=== PATIENT | female | born 1995 | race Caucasian/White ===

== ENCOUNTER 2020-02-16 02:10 | Emergency (ER) | payer MEDICAID, SELFPAY ==
[2020-02-16 02:20] VITALS: BP 128/83; PULSE 86; RESP 18; TEMP 36.1; O2SAT 99; BMI 24.5
--- NOTE | 2020-02-16 02:37 | USR_ITS ---
PROCEDURE INFORMATION: Exam: US , Limited Exam date and time: 02/16/2020 3:16 AM Age: 24 years old Clinical indication: Lmp or gestational age (in weeks): PT should be 11 week by dates; Other: Bleeding cramping; ; Patient HX: ? Blighted ovum vs molor vs etopic; Additional info: Vag bleeding, cramp TECHNIQUE: Imaging protocol: Real-time ultrasound of the maternal uterus with image documentation. Exam focused on the clinical indication. COMPARISON: No relevant prior studies available. FINDINGS: Gestation: Intrauterine gestation sac measuring 9 mm. No extra uterine gestation identified. Heart rate: No visualized pole or cardiac activity. BIOMETRY: Estimated gestational age: Gestational age 5 weeks and 6 days. Estimated due date: Estimated due date 10/12/2020. US/US OB >=14 wk fetus w transvag IMPRESSION: Intrauterine gestational sac without identified yolk sac, pole, or heart rate. Possibly too early versus failure, follow-up recommended.
--- NOTE | 2020-02-16 02:52 | ED_ITS ---
HPI - Female Genitourinary General: Chief complaint: Urogenital-Female Stated complaint: vaginal bleeding Time Seen by Provider: 02/16/20 02:32 History of Present Illness: HPI Narrative: 24-year-old G1, P0 female. She presents with bleeding and cramping. She is passing some blood clots with a large amount of bleeding. She says the cramping is gotten worse tonight. She believes she is around 10 weeks along, and she was ultrasounded a little less than 2 weeks ago in her OBs clinic. Supposedly they were quite worried about the possibility of a molar . MD elicited complaint: vaginal bleeding Pertinent past history: overactive bladder Onset (ago): day(s) (1) Location of symptoms: vaginal Consistency: progressively worsening Associated symptoms: Reports abdominal pain and nausea; Deny headache(s) Date of Last Menstrual Period: 12/02/19 Review of Systems Const: Denies: fever or chills Eyes: Denies: change in vision ENMT: Reports: swelling of lips/tongue; Denies: painful swallowing or facial/sinus pain Card: Denies: chest pain, palpitations, irregular heart rhythm, edema, swelling of feet/ankles, shortness of breath on exertion or shortness of breath when lying down Resp: Denies: shortness of breath, productive cough, non-productive cough or wheezing GI: Reports: abdominal pain and nausea; Denies: vomiting : Reports: urinary frequency; Denies: painful urination, urinary urgency or blood in urine Musc: Reports: back pain; Denies: neck pain, redness or joint warmth Skin/Breast: Denies: rash, itching or redness Neuro: Denies: headache, dizziness, vertigo, confusion or seizure-like activity Psych: Reports: anxiety PFSH ED PFSH: Social History Smoking and tobacco status: current every day smoker Female Reproductive History: Date of last menstrual period: 12/02/19 Physical Exam Const: GENERAL APPEARANCE: well developed ORIENTATION/CONSCIOUSNESS: Yes oriented to person, Yes oriented to place and Yes oriented to time HENMT: COMMON NORMALS: normocephalic, external ears normal and external nose normal HEAD & SCALP: normocephalic FACE & SINUS: normal facial exam NOSE: external nose normal and no nasal discharge EXTERNAL EAR: Yes external ears normal MOUTH: tongue normal Eye: COMMON NORMALS: PERRL, EOMs intact bilaterally and conjunctivae normal EYELID: eyelids normal CONJUNCTIVA: Yes conjunctivae normal PUPIL: Yes PERRL Neck/C-Spine: GENERAL: No tracheal deviation Chest: COMMONS NORMALS: inspection of chest normal CHEST: No tenderness Resp: COMMON NORMALS: clear to auscultation bilaterally EFFORT & INSPECTION: No tachypneic, No respiratory distress, No retractions, No uses accessory muscles and No tracheal deviation AUSCULTATION: clear to auscultation bilaterally, no rhonchi, no wheezes and lung sounds not diminished Cardio: COMMON NORMALS: regular rate and regular rhythm RATE: regular rate RHYTHM: regular rhythm HEART SOUNDS: no murmurs PERIPHERAL PULSES: radia l pulses present GI: INSPECTION: No abdominal distension AUSCULTATION: No hyperactive bowel sounds and No hypoactive bowel sounds PALPATION: Yes tender Details: LLQ, No guarding and No rigid PERCUSSION: no dullness to percussion and no tympanic to percussion Neuro: SENSORIUM/ORIENTATION: Yes oriented to person, Yes oriented to place and Yes oriented to time Psych: COMMON NORMALS: mental status grossly normal Skin: COMMON NORMALS: no rashes or lesions noted GENERAL SKIN EXAM: no rashes or lesions noted Course Vital Signs: Vital signs: Vital Signs Temperature 97.0 F L 02/16/20 02:20 Pulse Rate 75 02/16/20 04:23 Respiratory Rate 17 02/16/20 04:23 Blood Pressure 86/65 02/16/20 04:23 Pulse Oximetry 99 02/16/20 04:23 MDM - Female [facility] Narrative: Medical decision making narrative: 24-year-old female with vaginal bleeding, and cramping. She believes she is about 10 weeks . Her hemoglobin is 13.4. Her platelet count is normal. Her other serum work-up is benign. She is not having urinary tract infection. Her cervix is closed by ultrasound by ultrasound, her gestational sac measures 5 weeks and 6 days. This is consistent with her quant of 8200. But, there is no pole present or cardiac activity. She will need continued follow-up. Lab Data: Labs: Lab Results 02/16/20 02/16/20 02/16/20 Range/Units 02:50 02:55 02:55 WBC 11.4 H (4.0-10.0) 10^3/ uL RBC 4.42 (4.1-5.3) 10^6/u L Hgb 13.4 (11.5-15.3) g/dL Hct 40.3 (37.0-47.0) % MCV 91.2 (81-99) fL MCH 30.3 (28.0-34.0) pg MCHC 33.3 (30.0-36.0) g/dL RDW 12.3 (12.1-15.1) % Plt Count 180 (130-400) 10^3/c mm MPV 12.2 H (7.4-10.4) fL Neut % (Auto) 55.1 % Lymph % (Auto) 35.7 % [place] % (Auto) 7.7 % Eos % (Auto) 0.9 % Baso % (Auto) 0.4 % Neut # (Auto) 6.3 (1.8-7.7) 10^3/u L Lymph # (Auto) 4.1 (0.8-4.8) 10^3/u L [place] # (Auto) 0.9 (0.2-0.9) 10^3/u L Eos # (Auto) 0.1 (0.0-0.8) 10^3/u L Baso # (Auto) 0.1 (0.0-0.1) 10^3/u L Nucleated RBC % (a uto) 0 % Nucleated RBCs # 0.0 /100WBC Sodium 137 (136-145) mmol/L Potassium 3.5 (3.5-5.1) mmol/L Chloride 103 (98-107) mmol/L Carbon Dioxide 22 (22-29) mmol/L Anion Gap 15.5 (5-19) BUN 7 (6-20) mg/dL Creatinine 0.6 (0.5-0.9) mg/dL GFR Calculation 121.8 (90-130) mL/min Glucose 100 (65-115) mg/dL Calculated Osmolal ity 280 L (285-295) mOsm/k g Calcium 9.8 (8.5-10.5) mg/dL Total Bilirubin 0.2 (0.15-1.2) mg/dL AST 21 (0-32) U/L ALT 23 (0-33) U/L Alkaline Phosphata se 81 (35-105) IU/L Total Protein 7.4 (6.6-8.7) g/dL Albumin 4.2 (3.5-5.2) g/dL Globulin 3.2 (1.3-4.6) g/dL Ser , [place] i-Qnt 8258.00 mIU/mL Urine Color Yellow (Yellow) Urine Appearance Hazy A (CLEAR) Urine pH 7 (5-7) Ur Specific Gravit y 1.010 (1.005-1.030) Urine Protein Neg (Negative) Urine Glucose (UA) Norm (Normal) Urine Ketones Negative (Negative) Urine Blood 2+ H (Negative) Urine Nitrate Negative (Negative) Urine Bilirubin Neg (NEGATIVE) Urine Urobilinogen Norm (Negative) mg/dL Ur Leukocyte Wanda ase Negative (Negative) Urine RBC 0-4 H (0-2) /hpf Urine WBC None (0-5) /hpf Ur Squamous Epith Cells None (0-5) Amorphous Sediment 1+ Urine Bacteria Trace (NONE) Blood Type Rho(D) Type 02/16/20 Range/Units 02:55 WBC (4.0-10.0) 10^3/ uL RBC (4.1-5.3) 10^6/u L Hgb (11.5-15.3) g/dL Hct (37.0-47.0) % MCV (81-99) fL MCH (28.0-34.0) pg MCHC (30.0-36.0) g/dL RDW (12.1-15.1) % Plt Count (130-400) 10^3/c mm MPV (7.4-10.4) fL Neut % (Auto) % Lymph % (Auto) % [place] % (Auto) % Eos % (Auto) % Baso % (Auto) % Neut # (Auto) (1.8-7.7) 10^3/u L Lymph # (Auto) (0.8-4.8) 10^3/u L [place] # (Auto) (0.2-0.9) 10^3/u L Eos # (Auto) (0.0-0.8) 10^3/u L Baso # (Auto) (0.0-0.1) 10^3/u L Nucleated RBC % (a uto) % Nucleated RBCs # /100WBC Sodium (136-145) mmol/L Potassium (3.5-5.1) mmol/L Chloride (98-107) mmol/L Carbon Dioxide (22-29) mmol/L Anion Gap (5-19) BUN (6-20) mg/dL Creatinine (0.5-0.9) mg/dL GFR Calculation (90-130) mL/min Glucose (65-115) mg/dL Calculated Osmolal ity (285-295) mOsm/k g Calcium (8.5-10.5) mg/dL Total Bilirubin (0.15-1.2) mg/dL AST (0-32) U/L ALT (0-33) U/L Alkaline Phosphata se (35-105) IU/L Total Protein (6.6-8.7) g/dL Albumin (3.5-5.2) g/dL Globulin (1.3-4.6) g/dL Ser , [place] i-Qnt mIU/mL Urine Color (Yellow) Urine Appearance (CLEAR) Urine pH (5-7) Ur Specific Gravit y (1.005-1.030) Urine Protein (Negative) Urine Glucose (UA) (Normal) Urine Ketones (Negative) Urine Blood (Negative) Urine Nitrate (Negative) Urine Bilirubin (NEGATIVE) Urine Urobilinogen (Negative) mg/dL Ur Leukocyte Wanda ase (Negative) Urine RBC (0-2) /hpf Urine WBC (0-5) /hpf Ur Squamous Epith Cells (0-5) Amorphous Sediment Urine Bacteria (NONE) Blood Type A Negative Rho(D) Type Negaive Discharge Plan Discharge Patient Disposition: Home, Self-Care Clinical Impression: Threatened Condition: Stable Discharge Orders: Discharge Order (Routine); Ordered 02/16/20 Ordered By: Eric Donovan Discharge Diet: Advance as tolerated Discharge Activity: Limit activity as instructed Patient Instructions: Threatened Miscarriage (ED) Activity Restrictions/Additional Instructions: Return for brisk vaginal bleeding, soaking a pad an hour for more than 3 to 4 hours. Return also for fever greater than 100, vomiting liquids or medications, worsening pain, other concerning symptoms. You should follow-up with your doctor in the next few days, to have a repeat quantitative test. Coding Level of Care Code ED Financial Legal Assistant for Chg Fwd Exam Comprehensive
[2020-02-16] MEDS: sodium chloride 0.9% 1,000 ML 999 ML IV (03:07)
--- NOTE | 2020-02-16 03:12 | PC.NURSE ---
Ultrasound Ultrasound performed at bedside [id number]
[2020-02-16 03:20] VITALS: BP 127/49; PULSE 77; RESP 17; O2SAT 100
--- NOTE | 2020-02-16 03:21 | PC.NURSE ---
Transvaginal ultrasound Nurse at bedside during transvaginal ultrasound. Transvaginal ultrasound performed at 0322
[2020-02-16 03:32] LABS: Alanine Aminotransferase 23 U/L (0-33); Albumin Level 4.2 g/dL (3.5-5.2); Alkaline Phosphatase 81 IU/L (35-105); Anion Gap 15.5 (5-19); Aspartate Amino Transferase 21 U/L (0-32); Blood Urea Nitrogen 7 mg/dL (6-20); Calcium 9.8 mg/dL (8.5-10.5); Carbon Dioxide 22 mmol/L (22-29); Chloride 103 mmol/L (98-107); Globulin 3.2 g/dL (1.3-4.6); Glomerular Filtration Rate 121.8 mL/min (90-130); Glucose 100 mg/dL (65-115); Osmolality Calculated 280 mOsm/kg (285-295); Potassium 3.5 mmol/L (3.5-5.1); Sodium 137 mmol/L (136-145); Total Bilirubin 0.2 mg/dL (0.15-1.2); Total Protein 7.4 g/dL (6.6-8.7)
[2020-02-16 03:42] LABS: Glucose Urine UA Norm (Normal); Protein Urine Neg (Negative); Urine Appearance Hazy (CLEAR); Urine Color Yellow (Yellow); pH Urine 7 (5-7)
[2020-02-16 03:43] LABS: Add Urine Microscopic? YES; Bilirubin Urine Neg (NEGATIVE); Blood Urine 2+ (Negative); Ketones Urine Negative (Negative); Leukocyte Esterase Urine Negative (Negative); Nitrate Urine Negative (Negative); Urobilinogen Urine Norm (Negative)
[2020-02-16 03:44] LABS: Add Urine Culture? No; Amorphous Sediment Urine 1+; Bacteria Urine TRACE; RBC Urine 0-4 /hpf (0-2)
[2020-02-16 03:48] LABS: Basophils # 0.1 10^3/uL (0.0-0.1); Basophils % 0.4 %; Eosinophils # 0.1 10^3/uL (0.0-0.8); Eosinophils % 0.9 %; Hematocrit 40.3 % (37.0-47.0); Hemoglobin 13.4 g/dL (11.5-15.3); Lymphocytes # 4.1 10^3/uL (0.8-4.8); Lymphocytes % 35.7 %; Mean Corpuscular HGB Conc 33.3 g/dL (30.0-36.0); Mean Corpuscular Hemoglobin 30.3 pg (28.0-34.0); Mean Corpuscular Volume 91.2 fL (81-99); Mean Platelet Volume 12.2 fL (7.4-10.4); Monocytes # 0.9 10^3/uL (0.2-0.9); Monocytes % 7.7 %; Neutrophils # 6.3 10^3/uL (1.8-7.7); Neutrophils % 55.1 %; Nucleated Red Blood Cells % 0 %; Platelet Count 180 10^3/cmm (130-400); Red Blood Count 4.42 10^6/uL (4.1-5.3); Red Cell Distribution Width 12.3 % (12.1-15.1); White Blood Count 11.4 10^3/uL (4.0-10.0)
[2020-02-16 04:23] VITALS: BP 86/65; PULSE 75; RESP 17; O2SAT 99
[2020-02-16 05:57] VITALS: BP 109/65; PULSE 78; RESP 17; O2SAT 100
[2020-02-16 06:07] VITALS: BP 109/65; PULSE 78; RESP 17; O2SAT 100
== END 2020-02-16 06:07 | disposition home or self-care (01) ==
PROVIDERS: Emergency Provider Emergency Medicine
DX: O20.0 Threatened abortion (principal); Z3A.10 10 weeks gestation of pregnancy; O99.331 Smoking (tobacco) complicating pregnancy, first trimester; F17.210 Nicotine dependence, cigarettes, uncomplicated
CPT/HCPCS: 12345; 36430; 76805; 76817; 80053; 81001; 84702; 85025; 86850; 86900; 90384; 96360; 99283; J7030

== ENCOUNTER → 2020-08-22 12:44 | Outpatient (BNVA) | payer OTHER, SELFPAY | DX: R35.0 Frequency of micturition (principal); R19.8 Other specified symptoms and signs involving the digestive system and abdomen; R11.0 Nausea; Z33.1 Pregnant state, incidental | CPT/HCPCS: 81000; 87086 ==

== ENCOUNTER → 2020-08-31 10:17 | Outpatient (BNVA) | payer OTHER, SELFPAY | PROVIDERS: Visit Provider Emergency Medicine | DX: Z20.828 Contact with and (suspected) exposure to other viral communicable diseases (principal); R68.89 Other general symptoms and signs | CPT/HCPCS: 87400; 87635 ==

== ENCOUNTER → 2021-02-05 09:45 | Outpatient (BNVA) | payer OTHER, SELFPAY | PROVIDERS: Visit Provider Nurse Practitioner Family | DX: Z20.822 Contact with and (suspected) exposure to COVID-19 (principal) | CPT/HCPCS: 87426 ==

== ENCOUNTER → 2021-04-09 16:36 | Outpatient (BNVA) | payer OTHER, SELFPAY | PROVIDERS: Visit Provider Nurse Practitioner | DX: S99.921A Unspecified injury of right foot, initial encounter (principal); X58.XXXA Exposure to other specified factors, initial encounter | CPT/HCPCS: 73630 ==

== ENCOUNTER 2021-05-18 11:37 | Outpatient (CLI) | payer OTHER, SELFPAY ==
[2021-05-18 13:42] LABS: HCG Quantitative 26.93 mIU/mL
== END 2021-05-18 11:38 | disposition home or self-care (01) ==
PROVIDERS: Visit Provider Obstetrics & Gynecology
DX: N91.2 Amenorrhea, unspecified (principal)
CPT/HCPCS: 84702

== ENCOUNTER 2021-05-20 11:14 | Outpatient (CLI) | payer OTHER, SELFPAY ==
[2021-05-20 12:06] LABS: HCG Quantitative 40.34 mIU/mL
== END 2021-05-20 11:15 | disposition home or self-care (01) ==
PROVIDERS: PCP Registered Nurse; Visit Provider Obstetrics & Gynecology
DX: N91.2 Amenorrhea, unspecified (principal)
CPT/HCPCS: 36415; 84702

== ENCOUNTER 2021-05-22 12:39 | Emergency (ER) | payer OTHER, SELFPAY ==
[2021-05-22 13:01] VITALS: BP 136/81; PULSE 78; RESP 15; TEMP 37.1; O2SAT 98; BMI 25.6
--- NOTE | 2021-05-22 14:09 | ED_ITS ---
HPI - General: Chief complaint: Vaginal Bleeding Stated complaint: abd pain; spotting; est 4 weeks gestation Time Seen by Provider: 05/22/21 14:05 History of Present Illness: HPI Narrative: Patient has some light spotting. Almost slight starr color she said been going on for today. Has some cramping also did contact her OB they said come in and get some lab work done evaluate. MD Complaint: other (Abdominal cramping with slight rust colored Spotting) Onset (ago): day(s) Pain Consistency: intermittent Severity scale (1-10): 1 Quality: Cramping Vaginal discharge: clear Vaginal bleeding: light Date of Last Menstrual Period: 04/18/21 Patient : Yes OB History - Current : no complications OB History - Previous Pregnancies: miscarriage care: followed by OB Associated symptoms: Reports no associated symptoms and abdominal pain (Cramping); Deny headache(s), nausea or vomiting Review of Systems Const: Denies: fever(s), chills or body aches Eyes: Denies: change in vision or blurry vision ENMT: Denies: throat pain or nasal congestion Card: Denies: chest pain or dyspnea on exertion Resp: Denies: dyspnea, productive cough or non-productive cough GI: Reports: abdominal pain (Cramping); Denies: nausea or vomiting : Reports: other (Rust colored light spotting) Musc: Denies: extremity pain Skin/Breast: Denies: rash Neuro: Denies: headache(s) Psych: Denies: anxiety or depression Raman/Lymph: Denies: easy bruising PFSH ED PFSH: Family History Other Hypertension Denies family history of Diabetes Dementia Social History Smoking and tobacco status: current every day smoker Female Reproductive History: Date of last menstrual period: 04/18/21 Physical Exam Const: COMMON NORMALS: no acute distress GI: COMMON NORMALS: Normal to inspection, nondistended, normoactive bowel sounds present Psych: COMMON NORMALS: mental status grossly normal Course Vital Signs: Vital signs: Vital Signs Temperature 98.8 F 05/22/21 13:01 Pulse Rate 78 05/22/21 13:01 Respiratory Rate 15 05/22/21 13:01 Blood Pressure 136/81 05/22/21 13:01 Pulse Oximetry 98 05/22/21 13:01 MDM - OB/Uterine Contractions MDM Narrative: Medical decision making narrative: Abdominal cramping mild, mild vaginal bleeding. UA shows 2+ hematuria. Patient encouraged follow-up with OB provider or return here if symptoms worsen. hCG has doubled since last 1 last week. Patient still not 4-week range. Lab Data: Labs: Lab Results 05/22/21 05/22/21 05/22/21 Range/Units 14:25 14:25 14:25 WBC 11.4 H (4.0-10.0) 10^3/ uL RBC 4.70 (4.1-5.3) 10^6/u L Hgb 14.3 (11.5-15.3) g/dL Hct 42.8 (37.0-47.0) % MCV 91.1 (81-99) fl MCH 30.4 (28.0-34.0) pg MCHC 33.4 (30.0-36.0) g/dL RDW 12.2 (12.1-15.1) % Plt Count 188 (130-400) 10^3/c mm MPV 12.0 H (7.4-10.4) fL Neut % (Auto) 58.8 % Lymph % (Auto) 34.0 % [place] % (Auto) 6.0 % Eos % (Auto) 0.6 % Baso % (Auto) 0.3 % Neut # (Auto) 6.71 (1.8-7.7) 10^3/u L Lymph # (Auto) 3.9 (0.8-4.8) 10^3/u L [place] # (Auto) 0.7 (0.2-0.9) 10^3/u L Eos # (Auto) 0.1 (0.0-0.8) 10^3/u L Baso # (Auto) 0.0 (0.0-0.1) 10^3/u L Nucleated RBC % (a uto) 0 % Nucleated RBCs # 0.0 /100WBC Sodium 136 (136-145) mmol/L Potassium 3.7 (3.5-5.1) mmol/L Chloride 101 (98-107) mmol/L Carbon Dioxide 22 (22-29) mmol/L Anion Gap 16.7 (5-19) BUN 9 (6-20) mg/dL Creatinine 0.5 (0.5-0.9) mg/dL GFR Calculation 148.0 H (90-130) mL/min Glucose 77 (65-115) mg/dL Calculated Osmolal ity 279 L (285-295) mOsm/k g Calcium 9.3 (8.5-10.5) mg/dL Ser , [place] i-Qnt 88.65 mIU/mL Urine Color Yellow (Yellow) Urine Appearance Clear (CLEAR) Urine pH 7 (5-7) Ur Specific Gravit y 1.005 (1.005-1.030) Urine Protein Neg (Negative) Urine Glucose (UA) Norm (Normal) Urine Ketones Negative (Negative) Urine Blood 2+ H (Negative) Urine Nitrate Negative (Negative) Urine Bilirubin Neg (Negative) Urine Urobilinogen Norm (Negative) mg/dL Ur Leukocyte Wanda ase Negative (Negative) Urine RBC 0-4 H (0-2) /hpf Urine WBC None (0-5) /hpf Ur Squamous Epith Cells 0-4 H (0-5) /hpf Ur Transition Epit h Cell None /hpf Ur Renal Epithelia l Cell N /hpf Calcium Oxalate Cr ystal None /hpf Amorphous Sediment Trace /hpf Urine Bacteria None (NONE) /hpf Urine Mucus N /hpf Discharge Plan Discharge Patient Disposition: Home Clinical Impression: Threatened Condition: Stable Prescriptions: No Action prenat.vits,zahira,[id number] Tablet 1 tab PO DAILY RF: 0 Tylenol 325 mg Tablet 325 - 650 mg PO QID PRN (Reason: PAIN/HEADACHE) RF: 0 Discharge Orders: Discharge ED (Routine); Ordered 05/22/21 Ordered By: Alexey Quiñones Referrals: Abby Zapata [Primary Care Provider] - Discharge Diet: Usual diet Discharge Activity: Increase activity as tolerated Activity Restrictions/Additional Instructions: Drink plenty of fluids. Follow-up with your provider of choice. Rest this weekend. Can return if worsening of symptoms. Coding Level of Care Code ED Supervisor [employer] for Chg Fwd Exam Expanded Problem Focused
[2021-05-22 14:35] VITALS: BP 108/76; PULSE 70; RESP 18; O2SAT 97
[2021-05-22 14:39] LABS: Basophils % 0.3 %; Eosinophils # 0.1 10^3/uL (0.0-0.8); Eosinophils % 0.6 %; Hematocrit 42.8 % (37.0-47.0); Hemoglobin 14.3 g/dL (11.5-15.3); Lymphocytes # 3.9 10^3/uL (0.8-4.8); Mean Corpuscular HGB Conc 33.4 g/dL (30.0-36.0); Mean Corpuscular Hemoglobin 30.4 pg (28.0-34.0); Mean Corpuscular Volume 91.1 fl (81-99); Monocytes # 0.7 10^3/uL (0.2-0.9); Neutrophils # 6.71 10^3/uL (1.8-7.7); Neutrophils % 58.8 %; Nucleated Red Blood Cells % 0 %; Platelet Count 188 10^3/cmm (130-400); Red Cell Distribution Width 12.2 % (12.1-15.1); White Blood Count 11.4 10^3/uL (4.0-10.0)
[2021-05-22 15:00] VITALS: BP 112/67; PULSE 68; RESP 16; O2SAT 96
[2021-05-22 15:20] LABS: Urine Appearance Clear (CLEAR); Urine Color Yellow (Yellow)
[2021-05-22 15:21] LABS: Add Urine Microscopic? YES; Bilirubin Urine Neg (Negative); Blood Urine 2+ (Negative); Glucose Urine UA Norm (Normal); Ketones Urine Negative (Negative); Leukocyte Esterase Urine Negative (Negative); Nitrate Urine Negative (Negative); Protein Urine Neg (Negative); Specific Gravity, Urine 1.005 (1.005-1.030); Urobilinogen Urine Norm (Negative); pH Urine 7 (5-7)
[2021-05-22 15:23] LABS: HCG Quantitative 88.65 mIU/mL; Mucus Urine N /hpf; RBC Urine 0-4 /hpf (0-2); Renal Epithelial Cells Urine N /hpf; Squamous Epithelial Cell Urine 0-4 /hpf (0-5)
[2021-05-22 15:24] LABS: Add Urine Culture? No; Amorphous Sediment Urine TRACE /hpf
[2021-05-22 15:30] VITALS: BP 104/65; PULSE 69; RESP 16; O2SAT 97
[2021-05-22 15:34] LABS: Anion Gap 16.7 (5-19); Blood Urea Nitrogen 9 mg/dL (6-20); Calcium 9.3 mg/dL (8.5-10.5); Carbon Dioxide 22 mmol/L (22-29); Chloride 101 mmol/L (98-107); Glucose 77 mg/dL (65-115); Osmolality Calculated 279 mOsm/kg (285-295); Potassium 3.7 mmol/L (3.5-5.1); Sodium 136 mmol/L (136-145)
[2021-05-22 16:00] VITALS: BP 128/92; PULSE 73; RESP 16; O2SAT 97
== END 2021-05-22 16:06 | disposition home or self-care (01) ==
PROVIDERS: Emergency Provider Nurse Practitioner Family; PCP Registered Nurse
DX: O20.0 Threatened abortion (principal); O99.331 Smoking (tobacco) complicating pregnancy, first trimester; F17.200 Nicotine dependence, unspecified, uncomplicated; Z3A.01 Less than 8 weeks gestation of pregnancy
CPT/HCPCS: 80048; 81001; 84702; 85025; 86900; 99283

== ENCOUNTER 2021-05-25 08:45 | Outpatient (CLI) | payer OTHER, SELFPAY ==
[2021-05-25 09:42] LABS: HCG Quantitative 5.23 mIU/mL
== END 2021-05-25 08:46 | disposition home or self-care (01) ==
PROVIDERS: PCP Registered Nurse; Visit Provider Registered Nurse
DX: O20.0 Threatened abortion (principal)
CPT/HCPCS: 36415; 84702

== ENCOUNTER → 2021-05-27 09:07 | Day surgery (SDC) | payer OTHER, SELFPAY ==
[2021-05-27 11:45] VITALS: BP 112/77; PULSE 82; RESP 18; TEMP 36.9; O2SAT 98
[2021-05-27 11:46] VITALS: BMI 25.0
[2021-05-27 11:54] VITALS: BP 112/77; PULSE 82; RESP 18; TEMP 36.9; O2SAT 98
== END ==
LOC: GILAB 09:10
PROVIDERS: PCP Registered Nurse; Visit Provider Obstetrics & Gynecology
DX: Z34.80 Encounter for supervision of other normal pregnancy, unspecified trimester (principal); Z31.82 Encounter for Rh incompatibility status; Z67.91 Unspecified blood type, Rh negative
CPT/HCPCS: 36415; 36430; 86850; 86900; 90384; 96372

== ENCOUNTER 2021-06-25 15:13 | Outpatient (CLI) | payer OTHER, SELFPAY ==
--- NOTE | 2021-06-25 15:20 | XR_ITS ---
WS: [id number] [place] [id number] REASON FOR EXAM: injury FINDINGS: Normal left clavicle with normal alignment of the left acromioclavicular joint. Normal glenohumeral joint with no bony abnormality. XR/[place] [id number] IMPRESSION: No significant bony or joint abnormality identified.
== END 2021-06-25 15:14 | disposition home or self-care (01) ==
LOC: RAD 15:17
PROVIDERS: PCP Registered Nurse; Visit Provider Registered Nurse Neonatal Intensive Care
DX: S49.92XA Unspecified injury of left shoulder and upper arm, initial encounter (principal); X58.XXXA Exposure to other specified factors, initial encounter
CPT/HCPCS: 73000

== ENCOUNTER → 2021-07-09 09:38 | Outpatient (BNVA) | payer OTHER, SELFPAY | PROVIDERS: PCP Registered Nurse; Visit Provider Family Medicine Adult Medicine | DX: R30.0 Dysuria (principal); N39.0 Urinary tract infection, site not specified; Z98.890 Other specified postprocedural states | CPT/HCPCS: 81000 ==

== ENCOUNTER → 2022-03-02 15:47 | Outpatient (BNVA) | payer OTHER, SELFPAY | PROVIDERS: PCP Registered Nurse; Visit Provider Nurse Practitioner Family | DX: R19.8 Other specified symptoms and signs involving the digestive system and abdomen (principal); K29.60 Other gastritis without bleeding | CPT/HCPCS: 81000 ==

== ENCOUNTER → 2022-03-15 10:48 | Outpatient (BNVA) | payer OTHER, SELFPAY | PROVIDERS: PCP Registered Nurse; Referring Provider Registered Nurse Neonatal Intensive Care; Visit Provider Podiatrist Foot & Ankle Surgery | DX: M25.571 Pain in right ankle and joints of right foot (principal) | CPT/HCPCS: 73610; 73620 ==

== ENCOUNTER 2022-05-28 15:19 | Emergency (ER) | payer OTHER, SELFPAY ==
[2022-05-28 15:43] VITALS: BP 131/90; PULSE 100; RESP 14; TEMP 36.8; O2SAT 98; BMI 23.8
[2022-05-28 16:14] LABS: Bilirubin Urine 2+ (Negative); Blood Urine Neg (Negative); Glucose Urine UA Norm (Normal); Ketones Urine Negative (Negative); Nitrate Urine Positive (Negative); Protein Urine 3+ (Negative); Urine Appearance Clear (CLEAR); Urine Color Yellow (Yellow); pH Urine 6 (5-7)
[2022-05-28 16:15] LABS: Add Urine Microscopic? YES; Leukocyte Esterase Urine Negative (Negative); Urobilinogen Urine 8 mg/dL (Negative)
--- NOTE | 2022-05-28 16:21 | CTR_ITS ---
PROCEDURE INFORMATION: Exam: CT Abdomen And Pelvis Without Contrast Exam date and time: 05/28/2022 5:51 PM Age: 27 years old Clinical indication: Abdominal tenderness and fever and nausea; Additional info: Right flank pain and UTI symptoms TECHNIQUE: Imaging protocol: Computed tomography of the abdomen and pelvis without contrast. Axial, coronal and sagittal reformatted images were created and reviewed. Radiation optimization: All CT scans at this facility use at least one of these dose optimization techniques: automated exposure control; mA and/or kV adjustment per patient size (includes targeted exams where dose is matched to clinical indication); or iterative reconstruction. COMPARISON: US OB >=14 wk fetus w transvag 02/16/2020 3:18 AM RADIATION DOSE METRICS: Total DLP (mGy-cm): 359.9 FINDINGS: Liver: Unremarkable. Gallbladder and bile ducts: No radiodense gallstones. No biliary ductal dilatation. Pancreas: Unremarkable. Spleen: Unremarkable. Adrenal glands: Normal. No mass. Kidneys and ureters: No mass. No radiodense calculi. No hydronephrosis. Stomach and bowel: Moderate amount of retained stool in the colon. No obstruction. No bowel wall thickening. No pneumatosis. Appendix: Normal. Intraperitoneal space: Trace nonspecific free pelvic fluid, likely physiologic. No organized fluid collection. No free air. Vasculature: Unremarkable. No aneurysm. Lymph nodes: No pathologically enlarged lymph nodes. Urinary bladder: Unremarkable as visualized. Reproductive: 3.3 x 2.1 cm right adnexal cystic lesion. Bones/joints: No acute osseous abnormality. Limbus L3 vertebra. Soft tissues: Unremarkable. CT/CT abdomen pelvis wo con [id number] IMPRESSION: 1. 3.3 x 2.1 cm right adnexal cystic lesion. 2. Additional findings, as above.
--- NOTE | 2022-05-28 16:23 | W.ED.FEMALGU ---
HPI - Female Genitourinary General: Chief complaint: Urogenital-Female Stated complaint: confusion/shaking Time Seen by Provider: 05/28/22 16:05 History of Present Illness: Patient is a 27-year-old female comes to the ED with worsening UTI symptoms. She started having pain with urination approximately 5 days ago. She went to urgent care clinic on May 26 and was diagnosed with a UTI and sent home with a prescription for Cipro and phenazopyridine. Yesterday patient says she started developing right flank and right lower back pain. She rates her back pain currently a 6 out of 10. She endorses having generalized weakness. She states she has nausea and has had low-grade fevers of around 99 degrees at home. Denies any emesis. Associated symptoms: Reports nausea; Deny abdominal pain or headache(s) Date of Last Menstrual Period: 05/14/22 Review of Systems Const: Denies: fever(s), chills or fatigue Eyes: Denies: change in vision or eye discomfort ENMT: Denies: throat pain, odynophagia, nasal discharge or nasal congestion Card: Denies: chest pain, palpitations, edema, swelling of feet/ankles, dyspnea on exertion or orthopnea Resp: Denies: dyspnea, productive cough or non-productive cough GI: Reports: nausea; Denies: abdominal pain, vomiting, diarrhea, constipation or hematochezia : Reports: flank pain (right flank) and dysuria; Denies: hematuria Musc: Denies: neck pain, back pain or extremity swelling Skin/Breast: Denies: rash or new lesions Neuro: Denies: headache(s), numbness in extremities or weakness in extremities [facility] ED PFSH: Medical History Psychiatric care Urinary tract infection Surgical History H/O dilation and curettage H/O laparoscopy Family History Other Hypertension Denies family history of Diabetes Dementia Social History Smoking and tobacco status: current every day smoker cigarettes Packs smoked per day: 1 Years cigarettes smoked: 6 Quit status (tobacco): has tried quititng Number of times tried to quit tobacco: 3 Second hand smoke exposure: Yes Smoking risk assessment/counseling performed?: No Alcohol intake: never Desire information about alcohol rehabilitation?: No Counseling given: No Desire information about substance/drug rehabilitation?: No Counseling given: No Female Reproductive History: Date of last menstrual period: 05/14/22 Physical Exam Const: COMMON NORMALS: no acute distress, patient oriented x3, healthy appearing and alert GENERAL APPEARANCE: cooperative and comfortable HENMT: COMMON NORMALS: normocephalic HEAD & SCALP: normocephalic MOUTH: Normal oral and palatal mucosa present THROAT: posterior oropharynx normal and uvula midline Neck/C-Spine: COMMON NORMALS: supple GENERAL: Yes normal visual inspection Resp: COMMON NORMALS: normal respiratory effort, No retractions, No use of accessory muscles and clear to auscultation bilaterally AUSCULTATION: clear to auscultation bilaterally Cardio: COMMON NORMALS: regular rate, regular rhythm, S1 normal heart sound present, S2 normal heart sound present, No gallops present (Cardio), No clicks present (Cardio), No murmurs present (Cardio) and Peripheral pulses 2+ throughout RATE: regular rate RHYTHM: regular rhythm HEART SOUNDS: S1 normal heart sound present and S2 normal heart sound present PERIPHERAL PULSES: Peripheral pulses 2+ throughout GI: COMMON NORMALS: Normal to inspection, nondistended, normoactive bowel sounds present, Soft to palpation, non-tender and no masses PALPATION: Yes Soft to palpation : BLADDER/KIDNEY EXAM: Yes CVA tenderness on the right Back/Pelvis: GENERAL BACK: Yes CVA tenderness Extremity: COMMON NORMALS: normal to inspection Neuro: COMMON NORMALS: patient oriented x3 SENSORIUM/ORIENTATION: Yes alert GAIT: Yes Normal gait present Skin: GENERAL SKIN EXAM: dry skin Course Vital Signs: Vital signs: Vital Signs Temperature 98.2 F 05/28/22 15:43 Pulse Rate 89 05/28/22 18:38 Respiratory Rate 16 05/28/22 18:38 Blood Pressure 107/75 05/28/22 18:38 Pulse Oximetry 98 05/28/22 18:38 Oxygen Delivery Me thod 05/28/22 18:38 MDM - Female Medical Decision Making Patient is a 27-year-old female comes to the ED with UTI symptoms and lower back pain. Patient was diagnosed with a UTI yesterday and just started Cipro yesterday as well. Back pain started and got worse yesterday. Vitals are stable. Patient appears nontoxic and in no acute distress or pain. Patient does have some right CVA and right flank tenderness upon exam. Rest of exam is benign. White blood cell count 11 the rest of CBC and CMP were unremarkable. hCG negative. UA shows signs of UTI. CT abdomen pelvis shows a right adnexal cyst and constipation, but no other acute findings. Patient was given a dose of IV Rocephin while here in the ED. She was diagnosed UTI, adnexal cyst and constipation. She was discharged home with a prescription for cefdinir and told to stop taking the Cipro. She was also sent home with a prescription for MiraLAX to help with constipation. 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 Return to ED precautions given. Patient understood agree with plan. Lab Data I reviewed the patient's lab results. : 05/28/22 16:27 05/28/22 16:27 Radiology Impressions Abdomen/Pelvis CT 05/28/22 16:21 IMPRESSION: 1. 3.3 x 2.1 cm right adnexal cystic lesion. 2. Additional findings, as above. Laboratory Results WBC 11.0 10^3/uL (4.0-10.0) H 05/28/22 16: RBC 4.31 10^6/uL (4.1-5.3) 05/28/22 16:27 Hgb 13.3 g/dL (11.5-15.3) 05/28/22 16: Hct 40.7 % (37.0-47.0) 05/28/22 16: MCV 94.4 fl (81-99) 05/28/22 16: MCH 30.9 pg (28.0-34.0) 05/28/22 16: MCHC 32.7 g/dL (30.0-36.0) 05/28/22 16: RDW 12.5 % (12.1-15.1) 05/28/22 16:27 Plt Count 155 10^3/cmm (130-400) 05/28/22 16: MPV 12.2 fL (7.4-10.4) H 05/28/22 16:27 Neut % (Auto) 53.9 % 05/28/22 16:27 Lymph % (Auto) 36.9 % 05/28/22 16:27 Grant % (Auto) 7.6 % 05/28/22 16:27 Eos % (Auto) 0.9 % 05/28/22 16:27 Baso % (Auto) 0.5 % 05/28/22 16:27 Neut # (Auto) 5.92 10^3/uL (1.8-7.7) 05/28/22 16: Lymph # (Auto) 4.1 10^3/uL (0.8-4.8) 05/28/22 16:27 Grant # (Auto) 0.8 10^3/uL (0.2-0.9) 05/28/22 16: Eos # (Auto) 0.1 10^3/uL (0.0-0.8) 05/28/22 16: Baso # (Auto) 0.1 10^3/uL (0.0-0.1) 05/28/22 16: Nucleated RBC % (auto) 0 % 05/28/22 16: Nucleated RBCs # 0.0 /100WBC 05/28/22 16:27 Sodium 138 mmol/L (136-145) 05/28/22 16:27 Potassium 3.8 mmol/L (3.5-5.1) 05/28/22 16: Chloride 105 mmol/L (98-107) 05/28/22 16: Carbon Dioxide 24 mmol/L (22-29) 05/28/22 16: Anion Gap 12.8 (5-19) 05/28/22 16:27 BUN 10 mg/dL (6-20) 05/28/22 16:27 Creatinine 0.6 mg/dL (0.5-0.9) 05/28/22 16: GFR Calculation 119.0 mL/min (90-130) 05/28/22 16: Glucose 95 mg/dL (65-115) 05/28/22 16: Calculated Osmolality 285 mOsm/kg (285-295) 05/28/22 16:27 Calcium 9.0 mg/dL (8.5-10.5) 05/28/22 16:27 Total Bilirubin 0.2 mg/dL (0.15-1.2) 05/28/22 16:27 AST 13 U/L (0-32) 05/28/22 16:27 ALT 9 U/L (0-33) 05/28/22 16:27 Alkaline Phosphatase 80 U/L (35-105) 05/28/22 16:27 Total Protein 6.8 g/dL (6.6-8.7) 05/28/22 16: Albumin 4.1 g/dL (3.5-5.2) 05/28/22 16: Globulin 2.7 g/dL (1.3-4.6) 05/28/22 16:27 HCG, Qual Negative (Negative) 05/28/22 16:42 Urine Color Yellow (Yellow) 05/28/22 16:00 Urine Appearance Clear (CLEAR) 05/28/22 16:00 Urine pH 6 (5-7) 05/28/22 16:00 Ur Specific Presto 1.030 (1.005-1.030) 05/28/22 16:00 Urine Protein 3+ (Negative) H 05/28/22 16:00 Urine Glucose (UA) Norm (Normal) 05/28/22 16:00 Urine Ketones Negative (Negative) 05/28/22 16:00 Urine Blood Neg (Negative) 05/28/22 16:00 Urine Nitrate Positive (Negative) H 05/28/22 16:00 Urine Bilirubin 2+ (Negative) H 05/28/22 16:00 Urine Urobilinogen 8 mg/dL (Negative) H 05/28/22 16:00 Ur Leukocyte Esterase Negative (Negative) 05/28/22 16:00 Urine RBC 0-4 /hpf (0-2) H 05/28/22 16:00 Urine WBC 0-4 /hpf (0-5) H 05/28/22 16:00 Ur Squamous Epith Cells 0-4 /hpf (0-5) H 05/28/22 16:00 Amorphous Sediment Not Reportable 05/28/22 16:00 Urine Bacteria Trace /hpf (NONE) 05/28/22 16:00 Discharge Plan Discharge Patient Disposition: Home Clinical Impression: Adnexal cyst UTI (urinary tract infection) Qualifiers: Urinary tract infection type: acute cystitis Hematuria presence: with hematuria Qualified Code(s): N30.01 - Acute cystitis with hematuria Constipation Qualifiers: Constipation type: unspecified constipation type Qualified Code(s): K59.00 - Constipation, unspecified Condition: Stable Prescriptions: New ibuprofen 600 mg tablet 600 mg PO Q8H PRN (Reason: pain) Qty: 20 0RF ondansetron 4 mg tablet,disintegrating 4 mg PO Q8H PRN (Reason: nausea and vomiting) Qty: 15 0RF Miralax 17 gram/dose powder 17 g PO DAILY 3 Days Qty: 119 0RF cefdinir 300 mg capsule 300 mg PO BID 10 Days Qty: 20 0RF Discontinued ciprofloxacin HCl [Cipro] 500 mg tablet 500 mg PO Q12H 5 Days Qty: 10 0RF No Action phenazopyridine [Pyridium] 200 mg tablet 200 mg PO Q8H PRN (Reason: pain) 3 Days Qty: 9 0RF sertraline [Zoloft] 100 mg tablet 100 mg PO DAILY Qty: 30 2RF Discharge Orders: Discharge ED (Routine); Ordered 05/28/22 Ordered By: Anthony Louis Referrals: Abby Zapata [Primary Care Provider] - Discharge Diet: Regular Discharge Activity: Increase activity as tolerated Patient Instructions: Ovarian Cyst (ED), Constipation (DC), Urinary Tract Infection in Women (DC) Activity Restrictions/Additional Instructions: Follow-up with medical provider as directed. Stop taking your previously prescribed ciprofloxacin and start taking the prescribed antibiotic cefdinir to treat UTI. Follow-up with your [employer] doctor to reevaluate right adnexal cyst in the next 2 weeks for reevaluation. Return to the ER or your medical provider if condition worsens. Please read and understand discharge instructions. Thank you for choosing [facility] for your healthcare needs today. Please realize this is an emergency room and that we are providing you with a medical screening exam and this may not be complete and all inclusive of all the testing and or work up that you may need to determine your ailment or severity of your illness. It is very important that you follow up as instructed or that you return to the Emergency Department should you have concerns or if your condition changes or worsens in any way. Coding Level of Care Code ED Library Services Coordinator for Venkat Braga Exam Comprehensive
[2022-05-28 16:26] LABS: Bacteria Urine TRACE /hpf; RBC Urine 0-4 /hpf (0-2); Squamous Epithelial Cell Urine 0-4 /hpf (0-5); WBC Urine 0-4 /hpf (0-5)
[2022-05-28 16:27] LABS: Add Urine Culture? No
[2022-05-28 16:35] LABS: Basophils # 0.1 10^3/uL (0.0-0.1); Basophils % 0.5 %; Eosinophils # 0.1 10^3/uL (0.0-0.8); Eosinophils % 0.9 %; Hematocrit 40.7 % (37.0-47.0); Hemoglobin 13.3 g/dL (11.5-15.3); Lymphocytes # 4.1 10^3/uL (0.8-4.8); Lymphocytes % 36.9 %; Mean Corpuscular HGB Conc 32.7 g/dL (30.0-36.0); Mean Corpuscular Hemoglobin 30.9 pg (28.0-34.0); Mean Corpuscular Volume 94.4 fl (81-99); Mean Platelet Volume 12.2 fL (7.4-10.4); Monocytes # 0.8 10^3/uL (0.2-0.9); Monocytes % 7.6 %; Neutrophils # 5.92 10^3/uL (1.8-7.7); Neutrophils % 53.9 %; Nucleated Red Blood Cells % 0 %; Platelet Count 155 10^3/cmm (130-400); Red Blood Count 4.31 10^6/uL (4.1-5.3); Red Cell Distribution Width 12.5 % (12.1-15.1)
[2022-05-28] MEDS: sodium chloride 0.9% 500 ML 999 ML IV (16:45)
[2022-05-28 17:00] LABS: Alanine Aminotransferase 9 U/L (0-33); Albumin Level 4.1 g/dL (3.5-5.2); Alkaline Phosphatase 80 U/L (35-105); Aspartate Amino Transferase 13 U/L (0-32); Blood Urea Nitrogen 10 mg/dL (6-20); Carbon Dioxide 24 mmol/L (22-29); Chloride 105 mmol/L (98-107); Globulin 2.7 g/dL (1.3-4.6); Glucose 95 mg/dL (65-115); Osmolality Calculated 285 mOsm/kg (285-295); Sodium 138 mmol/L (136-145); Total Bilirubin 0.2 mg/dL (0.15-1.2); Total Protein 6.8 g/dL (6.6-8.7)
[2022-05-28 17:17] VITALS: BP 109/76; PULSE 74; RESP 16; O2SAT 98
[2022-05-28 17:19] LABS: Anion Gap 12.8 (5-19); Potassium 3.8 mmol/L (3.5-5.1)
[2022-05-28 17:24] LABS: HCG, Serum Qual Negative (Negative)
[2022-05-28] MEDS: cefTRIAXone 1,000 MG in sodium chloride 0.9% (plus) 50 ML 100 MG IV (18:33)
[2022-05-28 18:38] VITALS: BP 107/75; PULSE 89; RESP 16; O2SAT 98
== END 2022-05-28 20:09 | disposition home or self-care (01) ==
PROVIDERS: Emergency Medicine; Emergency Provider Physician Assistant; PCP Registered Nurse
DX: N30.01 Acute cystitis with hematuria (principal); K59.00 Constipation, unspecified; N85.8 Other specified noninflammatory disorders of uterus; F17.210 Nicotine dependence, cigarettes, uncomplicated
CPT/HCPCS: 74176; 80053; 81001; 84703; 85025; 96365; 96366; 99285; J0696; J7040

== ENCOUNTER 2022-07-23 11:51 | Outpatient (CLI) | payer OTHER, SELFPAY | END 2022-07-23 11:52 | disposition home or self-care (01) | PROVIDERS: PCP Registered Nurse; Visit Provider Registered Nurse | DX: Z87.891 Personal history of nicotine dependence (principal) | CPT/HCPCS: 80323 ==

== ENCOUNTER → 2022-10-15 18:04 | Outpatient (BNVA) | payer SELFPAY | PROVIDERS: PCP Registered Nurse; Visit Provider Emergency Medicine | DX: Z20.828 Contact with and (suspected) exposure to other viral communicable diseases (principal); B34.9 Viral infection, unspecified | CPT/HCPCS: 87400 ==

== ENCOUNTER 2024-07-13 07:00 | Outpatient (CLI) | payer OTHER, SELFPAY ==
--- NOTE | 2024-07-13 07:05 | US_ITS ---
WS: [id number] EARLY OBSTETRICAL ULTRASOUND (<14 WEEKS). HISTORY: Dating COMPARISON: None available. Single intrauterine gestational sac is identified along the endometrial canal. Gestational sac measur ement 1.0 x 1.0 x 0.4 cm corresponds to a gestation of approximately 5 weeks and 4 days. There is a t iny yolk sac present. No pole or cardiac activity is identified. There is no subchorionic hemor rhage. RIGHT ovary is enlarged measuring 4.3 x 2.8 x 2.2 cm. There is a complex cyst associated with the RIG HT ovary which contains a few low-level echoes. Cyst measures 2.5 x 2.5 x 2.0 cm. LEFT ovary measures 1.9 x 1.3 x 1.1 cm. US/US OB <=14 wk fetus w transvag IMPRESSION: 1. Single intrauterine gestation of 5w4d with an EDC of 03/11/2025. No cardiac activity or crown-rump length is identified at this time. A yolk sac is identi fied. Recommend short-term transvaginal ultrasound follow-up to confirm cardiac activity and developing embryo. 2. Corpus luteal cyst RIGHT ovary 2.5 x 2.5 x 2.0 cm. RIGHT ovary is enlarged.
== END 2024-07-13 07:02 | disposition home or self-care (01) ==
PROVIDERS: PCP Registered Nurse; Visit Provider Registered Nurse
DX: N83.291 Other ovarian cyst, right side (principal); Z87.59 Personal history of other complications of pregnancy, childbirth and the puerperium; R10.9 Unspecified abdominal pain
CPT/HCPCS: 76801; 76817

== ENCOUNTER 2024-07-18 12:23 | Outpatient (CLI) | payer OTHER, SELFPAY ==
--- NOTE | 2024-07-18 12:27 | USR_ITS ---
PROCEDURE INFORMATION: Exam: US First Trimester, Transabdominal and US , Transvaginal Exam date and time: 07/18/2024 12:34 PM Age: 29 years old Clinical indication: Screening exam; Routine US, uterus; Additional info: History of ectopic pregancy TECHNIQUE: Imaging protocol: Real-time transabdominal obstetrical ultrasound of the maternal pelvis and a first trimester , less than 14 weeks 0 days, with image documentation. Transvaginal imaging was used for better evaluation of the fetus, adnexa, and/or cervix. COMPARISON: US OB <=14 wk fetus w transvag 07/13/2024 7:09 AM FINDINGS: GESTATION: Gestation: A smooth gestational sac is seen within a thickened endometrium. Mean gestational sac diameter is 1.59 cm consistent with gestational age of 6 weeks 3 days. Yolk sac is seen and measures 3.6 mm. No pole or cardiac activity is seen at this time. Interval mild increase in size of the gestational sac and yolk sac from 07/13/2024 exam. Embryonic/ heart rate: No pole or cardiac activity at this time. Extra-embryonic membranes/Placenta: No subchorionic bleed. Amniotic/Chorionic fluid: Amniotic and extra-amniotic fluid are normal for gestational age. BIOMETRY: Gestational age (AUA): 6 weeks 3 days by mean gestational sac diameter Mean sac diameter: 1.59 cm. EGA (MSD) is 6 w 3 d with ANGIE 03/10/2025 MATERNAL: Uterus: Unremarkable. Cervix: Unremarkable as visualized. Right ovary/adnexa: 3.5 x 2.8 x 2.5 cm. A rounded predominant anechoic cyst is seen measuring 1.4 x 1.6 x 1.4 cm, likely corpus luteal cyst. Right ovarian flow is seen. PSV 17.6 cm/s with RI 0.53. Left ovary/adnexa: 1.9 x 1 x 1.4 cm. Left ovarian flow is seen. PSV 14 cm/s with RI 0.63. Intraperitoneal space: No intraperitoneal free fluid. US/US OB <=14 wk fetus w transvag IMPRESSION: 1. Smooth intrauterine gestational sac with MSD 1.59 cm consistent with gestational age 6 weeks 3 days. 3.6 mm yolk sac. No pole or cardiac activity at this time. Note is made of mild interval growth or mild interval increase in size of gestational sac and yolk sac from recent prior exam 07/13/2024. Continued follow-up. Also correlate with quantitative serum beta HCG. 2. Findings again suggestive of corpus luteal cyst right ovary. 3. Bilateral ovarian flow.
== END 2024-07-18 12:24 | disposition home or self-care (01) ==
LOC: RAD 12:24
PROVIDERS: PCP Registered Nurse; Visit Provider Registered Nurse
DX: Z87.59 Personal history of other complications of pregnancy, childbirth and the puerperium (principal); O09.91 Supervision of high risk pregnancy, unspecified, first trimester; Z31.82 Encounter for Rh incompatibility status; N83.11 Corpus luteum cyst of right ovary
CPT/HCPCS: 76801; 76817

== ENCOUNTER 2024-07-25 13:52 | Outpatient (CLI) | payer OTHER, SELFPAY ==
--- NOTE | 2024-07-25 13:59 | USR_ITS ---
PROCEDURE INFORMATION: Exam: US First Trimester, Transabdominal and US , Transvaginal Exam date and time: 07/25/2024 2:13 PM Age: 29 years old Clinical indication: Screening exam; Routine US, uterus; Additional info: High risk first trimester TECHNIQUE: Imaging protocol: Real-time transabdominal obstetrical ultrasound of the maternal pelvis and a first trimester , less than 14 weeks 0 days, with image documentation. Transvaginal imaging was used for better evaluation of the fetus, adnexa, and/or cervix. COMPARISON: US OB <=14 wk fetus w transvag 07/18/2024 12:34 PM FINDINGS: GESTATION: Gestation: There is a single morphologically normal intrauterine gestational sac. The gestational sac contains a morphologically normal embryo and yolk sac. Embryonic/ heart rate: 134 bpm Extra-embryonic membranes/Placenta: Unremarkable. No subchorionic bleed. Amniotic/Chorionic fluid: Amniotic and extra-amniotic fluid are normal for gestational age. BIOMETRY: Gestational age (AUA): 6 weeks 5 days Estimated due date (AUA): 03/15/2025 by current ultrasound (03/10/2025 by prior ultrasound on 07/18/2024). [employer] rump length (CRL): 8 mm (6 weeks 5 days) MATERNAL: Uterus: The uterus is anteverted. Uterine contours are normal. The uterus measures 9.1 x 4.6 x 4.4 cm. Cervix: Limited visualization. Right ovary/adnexa: There is a 2.5 cm corpus luteum in the right ovary. Overall the right ovary measures 3.5 x 3.0 x 2.5 cm for a volume of 13.3 cc. There is normal blood flow in the right ovary. Left ovary/adnexa: The left ovary is not visible. Intraperitoneal space: There is trace simple free fluid in the posterior cul-de-sac. Urinary bladder: The maternal bladder is unremarkable. US/US OB <=14 wk fetus w transvag IMPRESSION: 1. Single live intrauterine of 6 weeks 5 days by current ultrasound for ANGIE of 03/15/2025. ANGIE by prior ultrasound on 07/18/2024 was 03/10/2025. Current dates are likely more accurate given crown-rump measurement currently compared to gestational sac measurement on 07/18/2024. 2. Trace pelvic free fluid is likely physiologic.
== END 2024-07-25 13:53 | disposition home or self-care (01) ==
LOC: RAD 13:56
PROVIDERS: PCP Registered Nurse; Visit Provider Registered Nurse
DX: O09.91 Supervision of high risk pregnancy, unspecified, first trimester (principal); Z87.59 Personal history of other complications of pregnancy, childbirth and the puerperium
CPT/HCPCS: 76801; 76817

== ENCOUNTER 2024-12-09 04:38 | Inpatient (IN) | payer OTHER, SELFPAY ==
[2024-12-09] VITALS (252 sets, daily range): BP systolic 87–136; BP diastolic 50–93; PULSE 68–125; RESP 15–18; TEMP 35.7–36.6; O2SAT 77–100; BMI 29.9
--- NOTE | 2024-12-09 02:53 | USR_ITS ---
PROCEDURE INFORMATION: Exam: US , Limited Exam date and time: 12/09/2024 2:57 AM Age: 29 years old Clinical indication: Lmp or gestational age (in weeks): 27 w; Antepartum complications; Bleeding; ; Additional info: Vaginal bleeding LABS AND CLINICAL REPORTS: Gestational age (Established): 26 w 6 d Estimated due date (Established): 03/11/2025 TECHNIQUE: Imaging protocol: Real-time ultrasound of the maternal uterus with image documentation. Exam focused on the clinical indication. COMPARISON: US OB >= 14 weeks fetus [id number] 11/01/2024 1:16 PM FINDINGS: Gestation: There is a single intrauterine in the cephalic presentation. The cervix is closed. BIOMETRY: Estimated weight: 885.91 g. EFW by AC, BPD, FL, HC, [place] 1985 Biparietal diameter (BPD): 7.05 cm. EGA (BPD) is 28 w 2 d. 84.1 % percentile Head circumference (HC): 26.38 cm. EGA (HC) is 28 w 5 d. 81.5 % percentile Abdominal circumference (AC): 21.05 cm. EGA (AC) is 25 w 4 d. 10.4 % percentile Femur length (FL): 4.7 cm. EGA (FL) is 25 w 5 d. 8.8 % percentile heart rate: No cardiac activity was detected. HC/AC: 1.25. (Normal range: 1.05 - 1.22) FL/HC: 17.82. (Normal range: 18.63 - 20.43) FL/BPD: 66.67. (Normal range: 71 - 87) FL/AC: 22.33. (Normal range: 20 - 24) MATERNAL: Cervix: Cervical length measures 4.7 cm. Placenta: The placenta is anterior and fundal. US/US OB limited [id number] IMPRESSION: 1. Intrauterine gestation as above. No cardiac activity identified. 2. Dr. Campos present during the exam.
[2024-12-09 03:12] LABS: Basophils # 0.1 10^3/uL (0.0-0.1); Basophils % 0.2 %; Lymphocytes # 1.4 10^3/uL (0.8-4.8); Lymphocytes % 5.9 %; Mean Corpuscular HGB Conc 33.2 g/dL (30-55); Mean Corpuscular Hemoglobin 31.2 pg (27-33); Mean Corpuscular Volume 94.1 fl (85-98); Mean Platelet Volume 11.2 fL (7.4-10.4); Monocytes # 1.3 10^3/uL (0.2-0.9); Monocytes % 5.3 %; Neutrophils # 21.07 10^3/uL (1.8-7.7); Neutrophils % 87.9 %; Nucleated Red Blood Cells % 0 %; Platelet Count 71 10^3/cmm (157-399); Red Blood Count 2.21 10^6/uL (3.85-5.65); Red Cell Distribution Width 14.3 % (12.1-15.1); White Blood Count 23.96 10^3/uL (3.29-11.43)
[2024-12-09 03:22] LABS: Hematocrit 20.8 % (36-47)
[2024-12-09] MEDS: ibuprofen 800 mg tablet PO (04:25)
[2024-12-09] MEDS: dextrose 5%-lactated ringers 1,000 ML 125 ML IV ×3 (05:06→21:24)
[2024-12-09] MEDS: miSOPROStol 100 mcg tablet 50 MCG SUBLINGUAL (05:07)
[2024-12-09] MEDS: sodium chloride 0.9% 100 mL Bag 50 ML IV (07:24)
--- NOTE | 2024-12-09 09:00 | PC.NURSE ---
Pt stood up to go to the bathroom and had a gush of blood and a small quarter dollar sized clot, pad was weighed and 50ml of blood was noted on pad.
--- NOTE | 2024-12-09 09:43 | PC.NURSE ---
pt pad was weighed and had 50ml of blood loss on pad.
[2024-12-09] MEDS: oxytocin 30 UNIT/500 ML BAG IV (09:54)
--- NOTE | 2024-12-09 10:01 | PC.NURSE ---
this nurse went to start pitocin on patient and pt had a gush in her pad. Pad was weighed and 75ml was noted.
--- NOTE | 2024-12-09 10:35 | PC.NURSE ---
This nurse changed pts pad and the EBL on the pad was 70ml.
[2024-12-09 11:06] LABS: Basophils % 0.2 %; Eosinophils % 0.2 %; Hematocrit 24.9 % (36-47); Lymphocytes # 3.1 10^3/uL (0.8-4.8); Lymphocytes % 14.7 %; Mean Corpuscular HGB Conc 34.5 g/dL (30-55); Mean Corpuscular Hemoglobin 30.6 pg (27-33); Mean Corpuscular Volume 88.6 fl (85-98); Mean Platelet Volume 11.1 fL (7.4-10.4); Monocytes # 1.4 10^3/uL (0.2-0.9); Monocytes % 6.6 %; Neutrophils # 16.09 10^3/uL (1.8-7.7); Neutrophils % 77.7 %; Nucleated Red Blood Cells % 0 %; Platelet Count 66 10^3/cmm (157-399); Red Blood Count 2.81 10^6/uL (3.85-5.65)
--- NOTE | 2024-12-09 11:08 | PC.NURSE ---
50ml of blood on pt nigel pad.
[2024-12-09] MEDS: ALPRAZolam 0.5 mg Tablet 0.25 MG PO (12:00)
[2024-12-09] MEDS: tranexamic acid 1,000 MG/100 ML PREMIX 600 MG IV ×2 (12:09→17:37)
--- NOTE | 2024-12-09 12:11 | P.HP_ITS ---
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 She was noted to have normal heart tones and normal movement at her appointment on December 07. It was also reported that she was having some bleeding. After arriving here in our facility, demise was confirmed. She is also noted to have a hemoglobin of 6.9, and a platelet count of 71,000. She was noted to have some mild vaginal bleeding as well. Her blood counts were checked again 2 hours after she received the 2 units of blood. Her hemoglobin had increased to 8.6, but her platelet count decreased to 66. I checked it 4 hours later and her hemoglobin had dropped to 6.9 again with a platelet count of 54. As result I elected to order 2 more units of packed red blood cells, 2 units of platelets and 2 units of fresh frozen plasma. We also ordered the DIC panel as well as a preeclamptic panel. She has felt well except for the contractions she has been having. There have been no other indications of preeclampsia. Her blood pressures been within normal limits. Present Details : 5 Para: 0 Review of Systems 2 General: Reports: 10 or more systems reviewed and unremarkable except in HPI and below Const: Reports: fatigue; Denies: fever(s) Eyes: Denies: change in vision Card: Reports: chest pain (Intermittently over the last week) Musc: Reports: back pain Raman/Lymph: Denies: easy bruising Medications/Allergies Home Medications ?Medication ?Instructions ?Recorded ?Confirmed ?Last Taken ?Type sertraline 100 mg tablet (Zoloft) 100 mg PO DAILY #30 tabs 06/27/24 12/09/24 12/08/24 Rx Allergies Allergy/AdvReac Type Severity Reaction Status Date / Time ciprofloxacin (From Cipro) Allergy Intermediate Sweaty, Verified 12/02/24 14:19 shaky, difficulty speaking. 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 PFSH: Medical History Nicotine dependence, cigarettes, uncomplicated Psychiatric care Urinary tract infection Surgical History H/O laparoscopy H/O dilation and curettage Family History Other Hypertension Denies family history of Diabetes Dementia Social History Smoking and tobacco/nicotine status: former use of tobacco/nicotine Quit status (tobacco/nicotine): has quit using Year quit tobacco: 2021 Second hand smoke exposure: No Alcohol intake: former Substance/Drug Use: never Vitals/I&O/Wt Last Vital Signs Temp 97.9 F 12/09/24 07:24 Pulse 90 12/09/24 12:08 Resp 16 12/09/24 07:24 BP 123/88 12/09/24 12:08 Pulse Ox 100 12/09/24 12:08 O2 Del Method Room Air 12/09/24 03:30 12/08/24 12/09/24 12/09/24 22:59 06:59 14:59 Intake Total 350 / 350 362.35 / 362.35 Balance 350 / 350 362.35 / 362.35 Weight last 48 hrs Weight 164 lb Physical Exam 2 Const: COMMON NORMALS: patient oriented x3 and alert HENMT: COMMON NORMALS: moist oral mucous membranes HEAD & SCALP: normal to inspection Chest: COMMONS NORMALS: normal inspection of the chest Resp: COMMON NORMALS: clear to auscultation bilaterally AUSCULTATION: clear to auscultation bilaterally Cardio: COMMON NORMALS: regular rate and regular rhythm RATE: regular rate RHYTHM: regular rhythm GI: INSPECTION: Yes normal to inspection and Yes other (Gravid) Extremity: COMMON NORMALS: normal to inspection GENERAL: Yes edema (Trace) Neuro: COMMON NORMALS: patient oriented x3, moves all extremities and no sensory deficits noted SENSORIUM/ORIENTATION: Yes alert Psych: COMMON NORMALS: mental status grossly normal Skin: COMMON NORMALS: no rashes or lesions noted GENERAL SKIN EXAM: no rashes or lesions noted Data 12/09/24 16:20 12/09/24 16:20 Results Labs OB ([facility]): 2 Obstetrics 12/09/24 Blood Type A Negative 12/09/24 Antibody Screen Negative 12/09/24 Hct 21.8 % (36-47) L 12/09/24 Hgb 7.50 g/dL (11.27-16.99) L 12/09/24 Rho(D) Type Rh negative 12/09/24 Plt Count 67 10^3/cmm (157-399) L 12/09/24 Uric Acid 3.0 mg/dL (2.4-5.7) 12/09/24 A&P Assessment and plan (1) 26 weeks gestation of : (2) demise: (3) Thrombocytopenia affecting : Because of the continued decrease in platelets as well as the decrease in her hemoglobin that seems to be out of her portion with the bleeding she has been having, I have elected to proceed with a section. Because of the gestational age, we will proceed with a classical unless the uterus appears to be appropriate for a lower uterine incision. We discussed the risk of including risk of bleeding, infection, and damage intra-abdominal organs. I did discuss the risks of DIC with her and her . We also explained to them that it may occur regardless of her efforts, but that her risk of DIC would increase as she stays . After discussion they are agreeable to have the and understand that she still has significant risks with any decision that we choose. (4) Anemia affecting : PDMP PDMP Reviewed: Not Reviewed Attestations 2 Medical Necessity Statement*: Given the complications involved including the patient's platelet count and dropping hemoglobin, it would be difficult anticipate along with hospitalization at this time. She will definitely require at least a 2 night stay after C- section today due to possible coagulopathy, severe anemia, and thrombocytopenia. Coding Level of Care Code Acute Code for Chg Fwd Diagnoses 26 weeks gestation of Z3A.26 demise Thrombocytopenia affecting O99.119; D69.6 Anemia affecting O99.019
--- NOTE | 2024-12-09 12:42 | PC.NURSE ---
@1237 pt nigel pad was changed and 20ml of blood noted on pad.
[2024-12-09 15:29] LABS: Basophils % 0.2 %; Eosinophils # 0.1 10^3/uL (0.0-0.8); Eosinophils % 0.5 %; Lymphocytes # 2.7 10^3/uL (0.8-4.8); Lymphocytes % 15.4 %; Mean Corpuscular HGB Conc 34.2 g/dL (30-55); Mean Corpuscular Hemoglobin 30.5 pg (27-33); Mean Corpuscular Volume 89.4 fl (85-98); Mean Platelet Volume 12.1 fL (7.4-10.4); Monocytes # 1.4 10^3/uL (0.2-0.9); Monocytes % 8.2 %; Neutrophils % 75.1 %; Nucleated Red Blood Cells % 0 %; Platelet Count 54 10^3/cmm (157-399); Red Blood Count 2.26 10^6/uL (3.85-5.65); Red Cell Distribution Width 15.8 % (12.1-15.1); White Blood Count 17.54 10^3/uL (3.29-11.43)
[2024-12-09 15:31] LABS: Hematocrit 20.2 % (36-47)
[2024-12-09 16:23] LABS: Reflex FDPQ test REFLEX FDP QUEST TES
[2024-12-09 16:26] LABS: Basophils % 0.2 %; Eosinophils # 0.1 10^3/uL (0.0-0.8); Eosinophils % 0.4 %; Hematocrit 21.8 % (36-47); Lymphocytes # 3.3 10^3/uL (0.8-4.8); Lymphocytes % 16.6 %; Mean Corpuscular HGB Conc 34.4 g/dL (30-55); Mean Corpuscular Hemoglobin 31.1 pg (27-33); Mean Corpuscular Volume 90.5 fl (85-98); Mean Platelet Volume 12.5 fL (7.4-10.4); Monocytes # 1.7 10^3/uL (0.2-0.9); Monocytes % 8.6 %; Neutrophils # 14.52 10^3/uL (1.8-7.7); Neutrophils % 73.8 %; Nucleated Red Blood Cells % 0 %; Platelet Count 67 10^3/cmm (157-399); Red Blood Count 2.41 10^6/uL (3.85-5.65); Red Cell Distribution Width 15.9 % (12.1-15.1); White Blood Count 19.67 10^3/uL (3.29-11.43)
[2024-12-09 16:40] LABS: INR 1.02 (0.8-1.2)
[2024-12-09 16:41] LABS: Alanine Aminotransferase 7 U/L (0-33); Albumin Level 2.9 g/dL (3.5-5.2); Alkaline Phosphatase 247 U/L (35-105); Blood Urea Nitrogen 8 mg/dL (6-20); Calcium 8.3 mg/dL (8.5-10.5); Carbon Dioxide 20 mmol/L (22-29); Chloride 101 mmol/L (98-107); Globulin 2.4 g/dL (1.3-4.6); Glomerular Filtration Rate 187.4 mL/min (90-130); Glucose 97 mg/dL (65-115); Osmolality Calculated 270 mOsm/kg (285-295); Partial Thromboplastin Time 23.1 SECONDS (23.9-36.7); Sodium 131 mmol/L (136-145); Total Bilirubin 0.4 mg/dL (0.15-1.2); Total Protein 5.3 g/dL (6.6-8.7)
[2024-12-09 16:42] LABS: Anion Gap 14.4 (5-19); Aspartate Amino Transferase 42 U/L (0-32); Potassium 4.4 mmol/L (3.5-5.1)
[2024-12-09] MEDS: sodium chloride 0.9% 1,000 ML 999 ML IV (16:47)
[2024-12-09 16:53] LABS: D Dimer >= 20.00 ug/mLFEU (0-0.59)
[2024-12-09 16:55] LABS: Bilirubin Urine Negative (Negative); Blood Urine 1+ (Negative); Glucose Urine UA Negative (Normal); Ketones Urine Negative (Negative); Leukocyte Esterase Urine Negative (Negative); Nitrate Urine Negative (Negative); Protein Urine Trace (Negative); Specific Gravity, Urine 1.018 (1.005-1.030); Urine Appearance Clear (CLEAR); Urine Color Yellow (Yellow); Urobilinogen Urine 0.2 mg/dL (Negative)
[2024-12-09] MEDS: citric acid-sodium citrate 30 mL UDC PO (16:58)
[2024-12-09] MEDS: famotidine 20 mg/2 mL INJ IVP (16:58)
[2024-12-09] MEDS: metoclopramide 5 mg/mL SDV 2 mL 10 MG IVP (16:58)
[2024-12-09] MEDS: ceFAZolin 2,000 mg SDV 2000 MG IVP (17:05)
[2024-12-09 17:09] LABS: Add Urine Microscopic? YES; Bacteria Urine TRACE /hpf; WBC Urine 0-4 /hpf (0-5)
--- NOTE | 2024-12-09 17:11 | P.ANESASSM_ITS ---
Pre-Anesthetic Assessment Height/Weight: Height 5 ft 2 in Weight 164 lb Temp Pulse Resp BP Pulse Ox O2 Del Method 97.9 F 101 H 16 123/78 99 Room Air 12/09/24 07:24 12/09/24 16:53 12/09/24 07:24 12/09/24 16:53 12/09/24 13:58 12/09/24 03:30 Preop Diagnosis: Emergent C section for demise Was Beta Gerardo taken within 24 hours: N/A Was Clonidine taken within 24 hours: N/A Social No alcohol and No tobacco Exam alert, oriented x 3, clear to auscultation bilaterally and regular rate & rhythm Airway Submandibular: within normal limits Cervical ROM: within normal limits Mallampati: Class II Dentition: full Anesthetic Plan ASA status: 4E Anesthesia: General Other: Emergent called for failure to progress with demise No prior issues with anesthesia NPO since 9 AM, biscuits and gravy Patient is 26 weeks gestation today with no heart tones upon arrival Severe thrombocytopenia that has steadily declined, last check was 67,000. Platelets currently running. FFP is on the way but 2 hours out Adequate IV access currently Vitals are stable, tachycardia noted Patient denies any pulmonary or cardiac issues METs greater than 4 Plan for general anesthesia with RSI. Discussed with patient the risks of anesthesia today and the small possibility of requiring prolonged intubation with transfer to ICU. She is aware of this and accepts risks at this time Medications/Allergies Home Medications ?Medication ?Instructions ?Recorded ?Confirmed ?Last Taken ?Type sertraline 100 mg tablet (Zoloft) 100 mg PO DAILY #30 tabs 06/27/24 12/09/24 12/08/24 Rx Allergies Allergy/AdvReac Type Severity Reaction Status Date / Time ciprofloxacin (From Cipro) Allergy Intermediate Sweaty, Verified 12/02/24 14:19 shaky, difficulty speaking. amoxicillin AdvReac Severe Swelling/An Verified 12/02/24 14:19 aphyaxis Current Medications Generic Name Dose Route Start Last Admin Trade Name Freq PRN Reason Stop Dose Admin Alprazolam 0.25 mg 12/09/24 11:30 12/09/24 12:00 Alprazolam 0.5 Mg Tablet PO 0.25 mg ONCE RONALDO Administration Dextrose/Lactated Ringer's 1,000 mls @ 125 mls/hr 12/09/24 04:08 12/09/24 12:49 Dextrose 5%-Lactated Ringers IV 125 mls/hr .Q8H PRN Administration per label comments Oxytocin 30 unit in 500 mls @ 1 mls/hr 12/09/24 09:45 12/09/24 14:45 Pitocin IV 25 milliunit/min .Q24H RONALDO 25 mls/hr Titration Protocol 1 MILLIUNIT/MIN Tranexamic Acid 1,000 mg in 100 mls @ 600 mls/hr 12/09/24 11:32 12/09/24 12:09 Tranexamic Acid IV 600 mls/hr Q30M PRN Administration BLEEDING Sodium Chloride 1,000 mls @ 999 mls/hr 12/09/24 16:23 12/09/24 16:47 Sodium Chloride 0.9% IV 12/09/24 17:23 999 mls/hr .Q1H1M ONE Administration Ibuprofen 800 mg 12/09/24 03:18 12/09/24 04:25 Ibuprofen 800 Mg Tablet PO 800 mg Q8H PRN Administration PAIN Misoprostol 50 mcg 12/09/24 04:30 12/09/24 05:07 Misoprostol 100 Mcg Tablet SUBLINGUAL 50 mcg ONCE RONALDO Administration Sodium Chloride 50 ml 12/09/24 03:29 12/09/24 07:24 Sodium Chloride 0.9% 100 Ml Bag IV 12/10/24 03:29 50 ml PRN PRN Administration Blood transfusion prime and flush PFSH Anesthesia Medical History Nicotine dependence, cigarettes, uncomplicated Psychiatric care Urinary tract infection Surgical History H/O laparoscopy H/O dilation and curettage Family History Other Hypertension Denies family history of Diabetes Dementia Social History Smoking and tobacco/nicotine status: former use of tobacco/nicotine Quit status (tobacco/nicotine): has quit using Year quit tobacco: 2021 Second hand smoke exposure: No Alcohol intake: former Substance/Drug Use: never Female Reproductive History : 5 Data Anesthesia 12/09/24 16:20 12/09/24 16:20 Short CBC 12/09/24 12/09/24 12/09/24 Range/Units 03:00 10:54 10:54 WBC 23.96 H Cancelled 20.70 H (3.29-11.43) 10^3/uL Hgb 6.90 L Cancelled (11.27-16.99) g/dL Hct 20.8 L* (36-47) % MCV 94.1 (85-98) fl Plt Count 71 L (157-399) 10^3/cmm Neut % (Auto) 87.9 % Neut # (Auto) 21.07 H (1.8-7.7) 10^3/uL 12/09/24 12/09/24 12/09/24 Range/Units 10:54 10:54 10:54 WBC (3.29-11.43) 10^3/uL Hgb 8.60 L (11.27-16.99) g/dL Hct Cancelled 24.9 L (36-47) % MCV Cancelled 88.6 D (85-98) fl Plt Count Cancelled (157-399) 10^3/cmm Neut % (Auto) % Neut # (Auto) (1.8-7.7) 10^3/uL 12/09/24 12/09/24 12/09/24 Range/Units 10:54 15:20 16:20 WBC 17.54 H 19.67 H (3.29-11.43) 10^3/uL Hgb 6.90 L 7.50 L (11.27-16.99) g/dL Hct 20.2 L* 21.8 L (36-47) % MCV 89.4 90.5 (85-98) fl Plt Count 66 L 54 L 67 L (157-399) 10^3/cmm Neut % (Auto) 77.7 75.1 73.8 % Neut # (Auto) 16.09 H 13.20 H 14.52 H (1.8-7.7) 10^3/uL BMP 12/09/24 16:20 Sodium 131 L Potassium 4.4 Chloride 101 Carbon Dioxide 20 L BUN 8 Creatinine 0.4 L Glucose 97 Calcium 8.3 L Liver Function 03/02/25 Range/Units 16:20 Total Bilirubin 0.4 (0.15-1.2) mg/dL AST 42 H (0-32) U/L ALT 7 (0-33) U/L Alkaline Phosphatase 247 H (35-105) U/L Albumin 2.9 L (3.5-5.2) g/dL Urine 12/09/24 Range/Units 16:40 Urine Color Yellow (Yellow) Urine Appearance Clear (CLEAR) Urine pH 6.0 (5-7) Ur Specific [place] 1.018 (1.005-1.030) Urine Protein Trace A (Negative) Urine Glucose (UA) Negative (Normal) Urine Ketones Negative (Negative) Urine Nitrate Negative (Negative) Urine Bilirubin Negative (Negative) Ur Leukocyte Esterase Negative (Negative) Urine RBC 5-10 H (0-2) /hpf Urine WBC 0-4 H (0-5) /hpf Blood Bank 12/09/24 03:00 Blood Type A Negative Rho(D) Type Rh negative Antibody Screen Negative Coags 12/09/24 16:20 PT 14.10 INR 1.02 APTT 23.1 L D-Dimer >= 20.00 H Cardiac Studies: 2 No Data to Display
[2024-12-09 17:15] LABS: Urine Creatinine 70 mg/dL (28-217); Urine Protein Random 14 mg/dL
[2024-12-09 17:23] LABS: Fibrinogen 76 mg/dL (174-498)
[2024-12-09] MEDS: carboprost tromethamine 250 mcg/mL Amp IM (17:30)
--- NOTE | 2024-12-09 18:33 | PM.OP ---
Operative Report Date of procedure: December 09, 2024 Pre-op diagnosis: 1. 29-year-old had 26 weeks estimated gestational age with demise 2. Progressive thrombocytopenia 3. Anemia with hemoglobin drop despite units of blood given Post-op diagnosis: Same Post-op findings: demise with large intrauterine clot consistent with abruption Procedure done: Classical uterine through Pfannenstiel incision Specimens removed/disposition: 1. male with a weight of 2 pounds 1 ounce 2. Placenta with three-vessel cord delivered intact 3. Large clot weighing 910 g Pathology: Placenta Surgeon: Derrek Campos MD Anesthesia: General Estimated blood loss (mL): 2,000 Estimated blood loss: Majority of blood loss was from old blood. Blood loss that occurred during surgery was around 800 cc Complications: None Procedure: The patient was brought back to the operating room where general anesthesia was performed. The patient patient was then positioned prepped and draped in usual fashion. A lower transverse skin incision was then made with a #10 blade. I then dissected down to the underlying subcutaneous tissue until arriving at the prerectal fascia. The fascia was then nicked with the scalpel bilaterally. The fascial incisions were then carried laterally with Wahl scissors. Attention was then turned to the superior aspect of the incision which was grasped with kochers and tented up away from the underlying rectus abdominis muscles. The muscles were then dissected away from the fascia manually, and later with Wahl scissors. Attention was then turned to the inferior aspect of the incision, and the fascia was dissected away from the underlying muscle in similar fashion. The rectus abdominis muscles were then spread manually. The peritoneum was entered manually. Excellent visualization of the uterus was noted. Approximately 20 to 30 mL of serosanguineous fluid was noted in the peritoneal cavity. The uterine was noted to appear bruised. A bladder flap was created. Due to the size/gestational age of the uterus, a classical incision was performed. A large clot was noted in the uterus. The infant was noted to be in vertex position. The baby was delivered without difficulty. There was no meconium. There was a nuchal cord x 1. The cord was cut and clamped. The baby was then handed to the waiting nurse. The placenta was removed intact. The uterus was externalized. The intrauterine cavity was cleansed of any remaining clots and debris.. The uterine incision was reapproximated using a single locked layer. I then used multiple [id number] stitches to stop any further bleeding that was noted. The uterus was noted to be atonic. There was minimal tone. Hemabate was given. TXA was given prior to the surgery. 10 cc of Pitocin was injected directly into the uterus. I manually compressed the uterus multiple times. The peritoneum was then irrigated with warm saline. I reexamined the uterine incision and found it to be hemostatic. The rectus abdominis muscles were then reapproximated using 0 Vicryl in a running stitch. The fascia was then reapproximated using 0 Vicryl in running stitch. The skin was using 3-0 Monocryl in running subcuticular stitch. A sterile dressing was placed. All counts were correct x2. The mother was in stable condition.
--- NOTE | 2024-12-09 19:12 | PC.NURSE ---
ALL BLOOD PRODUCTS IN [facility] WERE GIVEN IN OR BY ANESTHESIA.
--- NOTE | 2024-12-09 19:34 | PC.NURSE ---
Reece catheter inserted by Riki Woody RN at 1610.
[2024-12-09 19:43] LABS: Basophils # 0.1 10^3/uL (0.0-0.1); Basophils % 0.2 %; Eosinophils % 0.1 %; Hematocrit 23.4 % (36-47); Lymphocytes # 1.4 10^3/uL (0.8-4.8); Lymphocytes % 5.5 %; Mean Corpuscular HGB Conc 34.2 g/dL (30-55); Mean Corpuscular Hemoglobin 30.2 pg (27-33); Mean Corpuscular Volume 88.3 fl (85-98); Mean Platelet Volume 10.3 fL (7.4-10.4); Monocytes % 3.9 %; Neutrophils # 22.13 10^3/uL (1.8-7.7); Neutrophils % 89.7 %; Nucleated Red Blood Cells % 0 %; Platelet Count 112 10^3/cmm (157-399); Red Blood Count 2.65 10^6/uL (3.85-5.65); Red Cell Distribution Width 15.6 % (12.1-15.1); White Blood Count 24.67 10^3/uL (3.29-11.43)
--- NOTE | 2024-12-09 21:51 | PC.NURSE ---
MTS D/T gestational age, BabyBoy Moulds is not a candidate for MTS or Saving Site. Full release. Ref # [id number]
[2024-12-09] MEDS: HYDROcodone-acetaminophen 5-325 mg Tablet PO (23:10)
[2024-12-09 23:40] LABS: Hematocrit 23.3 % (36-47); Mean Corpuscular HGB Conc 34.8 g/dL (30-55); Mean Corpuscular Hemoglobin 30.2 pg (27-33); Mean Corpuscular Volume 86.9 fl (85-98); Mean Platelet Volume 10.6 fL (7.4-10.4); Platelet Count 113 10^3/cmm (157-399); Red Blood Count 2.68 10^6/uL (3.85-5.65); Red Cell Distribution Width 15.9 % (12.1-15.1); White Blood Count 22.89 10^3/uL (3.29-11.43)
[2024-12-10] VITALS (73 sets, daily range): BP systolic 96–127; BP diastolic 51–79; PULSE 71–109; O2SAT 84–99
[2024-12-10] MEDS: HYDROcodone-acetaminophen 5-325 mg Tablet PO ×5 (04:12→22:46)
[2024-12-10 05:21] LABS: Hematocrit 23.7 % (36-47); Mean Corpuscular HGB Conc 34.6 g/dL (30-55); Mean Corpuscular Hemoglobin 29.9 pg (27-33); Mean Corpuscular Volume 86.5 fl (85-98); Mean Platelet Volume 10.3 fL (7.4-10.4); Platelet Count 117 10^3/cmm (157-399); Red Blood Count 2.74 10^6/uL (3.85-5.65); Red Cell Distribution Width 16.5 % (12.1-15.1); White Blood Count 21.94 10^3/uL (3.29-11.43)
[2024-12-10] MEDS: docusate sodium 100 mg Capsule PO ×2 (09:50→19:29)
[2024-12-10] MEDS: ferrous sulfate EC 325 mg Tablet PO ×2 (09:51→19:29)
[2024-12-10] MEDS: PRENATAL VIT NO.130/IRON/FOLIC 1 EACH TABLET PO (09:51)
[2024-12-10] MEDS: sertraline 100 mg Tablet PO (09:51)
[2024-12-10 14:25] LABS: Basophils % 0.1 %; Eosinophils % 0.2 %; Hematocrit 21.4 % (36-47); Lymphocytes # 3.8 10^3/uL (0.8-4.8); Lymphocytes % 21.1 %; Mean Corpuscular HGB Conc 34.6 g/dL (30-55); Mean Corpuscular Hemoglobin 30.2 pg (27-33); Mean Corpuscular Volume 87.3 fl (85-98); Mean Platelet Volume 10.7 fL (7.4-10.4); Monocytes # 1.3 10^3/uL (0.2-0.9); Monocytes % 7.4 %; Neutrophils # 12.83 10^3/uL (1.8-7.7); Neutrophils % 70.7 %; Nucleated Red Blood Cells % 0 %; Platelet Count 109 10^3/cmm (157-399); Red Blood Count 2.45 10^6/uL (3.85-5.65); Red Cell Distribution Width 16.9 % (12.1-15.1); White Blood Count 18.13 10^3/uL (3.29-11.43)
--- NOTE | 2024-12-10 18:28 | PM.OBGYPN ---
[employer] Subjective Subjective: Interval history: The patient is making progress today. Her bleeding has been minimal. Her pain is better controlled. She has had excellent urine output. Her vitals have been stable. She has been doing remarkably well considering her condition yesterday. Labor: Station: -3 Amniotic Membrane Status: Intact Monitor Mode: External Contraction Pattern: Absent Vitals/I&O/Wt Last Vital Signs Temp 98 F 12/09/24 18:50 Pulse 100 12/10/24 15:02 Resp 17 12/09/24 19:05 BP 99/65 12/10/24 15:02 Pulse Ox 97 12/10/24 04:50 O2 Del Method Room Air 12/09/24 18:50 12/10/24 12/10/24 12/10/24 06:59 14:59 22:59 Output Total 1650 / 5100 700 / 700 Balance -1650 / -3177.900 -700 / -700 Weight last 48 hrs Weight 164 lb Physical Exam Narrative: She is in no acute distress Lungs are clear auscultation bilaterally Her heart has a regular rate and rhythm Her fundus is below the umbilicus and firm Her dressing is clean, dry and intact Her extremities have trace edema Urinary Catheter Management: Reece: Cath Placed During This Visit: yes, but has since been removed by the nurse Reason for Continuing Indwelling Catheter: Decision to DC Catheter Urinary Catheter Date of Insertion: 12/09/24 Urinary Catheter Time of Insertion: 16:10 Date Urinary Catheter Removed: 12/10/24 Time Urinary Catheter Discontinued: 08:00 Data 12/10/24 14:10 12/09/24 16:20 A&P Assessment and plan (1) demise: (2) 26 weeks gestation of : (3) Status post section: We discussed the . We discussed the classical incision. They understand that the next if they choose to get again will require a 37-week . They have no further questions PDMP PDMP Reviewed: Not Reviewed Attestations Medical Necessity Statement*: The patient will require at least 1 more night stay in the hospital if she does exceptionally well. Given her history of thrombocytopenia, and severe anemia, we will evaluate her tomorrow to determine if she is adequately stable to consider discharge. Coding Level of Care Code Acute Code for Chg Fwd Diagnoses demise 26 weeks gestation of Z3A.26 Status post section Z98.891
[2024-12-11 05:01] VITALS: BP 115/78; PULSE 99; RESP 16; TEMP 36.6; TEMP 36.7; O2SAT 96
[2024-12-11 05:01] LABS: Basophils % 0.3 %; Eosinophils # 0.1 10^3/uL (0.0-0.8); Eosinophils % 0.6 %; Hematocrit 21.7 % (36-47); Lymphocytes % 40.8 %; Mean Corpuscular HGB Conc 34.1 g/dL (30-55); Mean Corpuscular Hemoglobin 30.6 pg (27-33); Mean Corpuscular Volume 89.7 fl (85-98); Mean Platelet Volume 10.5 fL (7.4-10.4); Monocytes # 0.8 10^3/uL (0.2-0.9); Monocytes % 6.2 %; Neutrophils # 6.36 10^3/uL (1.8-7.7); Neutrophils % 51.6 %; Nucleated Red Blood Cells % 0 %; Platelet Count 113 10^3/cmm (157-399); Red Blood Count 2.42 10^6/uL (3.85-5.65); Red Cell Distribution Width 16.7 % (12.1-15.1); White Blood Count 12.33 10^3/uL (3.29-11.43)
[2024-12-11 05:29] LABS: Slide Review Slide Review Perform
[2024-12-11] MEDS: HYDROcodone-acetaminophen 5-325 mg Tablet PO (06:54)
--- NOTE | 2024-12-11 08:03 | P.DS_ITS ---
Discharge Providers [employer] Date of Admission: 12/09/24 04:38 Date of Discharge: 12/14/24 Attending Provider at Admission: Derrek Campos MD Attending Provider at Discharge: Derrek Campos MD Primary Care Provider: Abby Zapata Diagnoses at Discharge Discharge Diagnosis (1) demise: Status: Inactive (2) 26 weeks gestation of : Status: Resolved (3) Status post section: Status: Inactive Reason for Visit Reason for Visit: Vaginal Bleeding, 26 weeks possible [facility] Hospital Course Hospital Course The patient presented to the hospital via ambulance from [facility] [place] due to presumed demise and vaginal bleeding. After arriving at our hospital, the demise was confirmed. She was also noted to have a hemoglobin of 6.9 despite only mild vaginal bleeding. In addition her platelet count was 71 with a white blood count of 23. She was set up for 2 units of packed red blood cells. Induction was initiated with Cytotec due to her unfavorable cervix. Unfortunately, her cervix made minimal change, and her blood indices continue to drift. While her hemoglobin increased to 8.6 after 2 units, they then decreased to 6.9 5 hours later. In addition her platelet count dropped to 66, then 54. At that point I felt the risk of progressive DIC outweighed the risk of a section, especially given the fact that she had made minimal progress. We ordered 2 units of fresh frozen plasma, and 2 units of platelets, A DIC panel as well as a preeclamptic panel. We proceeded with a section prior to the results being completely available. Thankfully there was a unit of platelets that were previously ordered for another hospital patient that became available and we were able to infuse that at the time we started our . A Pfannenstiel skin incision was performed. I did elect to perform a classical incision due to the gestational age of the uterus and the undeveloped lower uterine segment. A large clot, over 900 mL ,was noted inside the uterus before entering the amniotic sac. The uterus also appeared to be bruised. The baby was delivered without difficulty. The uterine incision was reapproximated. The uterus continued to be atonic, and TXA, Hemabate, Pitocin injected into the uterus, and prolonged manual pressure were used to eventually gain some uterine tone. The rest the procedure was unremarkable. I anticipated using a Linnea device, but due to her minimal bleeding postop I felt it was unnecessary. Thankfully, the rest of the patient's hospital stay was relatively unremarkable. Post her vaginal bleeding was minimal. Her blood counts stabilized, and her condition improved dramatically. I discussed options with the parents regarding the baby both before and after the delivery. They were given the option of an autopsy and declined. They elected to have a mortuary care for her baby. She was discharged home 2 days postoperatively with a short interval outpatient follow-up. Information Peripartum Data: Delivery Method: Physical Exam Narrative: She is in no acute distress Lungs are clear auscultation bilaterally Her heart has a regular rate and rhythm Her fundus is below the umbilicus and firm Her dressing is clean, dry and intact Her extremities have trace edema Urinary Catheter Management: Reece: Cath Placed During This Visit: yes, but has since been removed by the nurse Reason for Continuing Indwelling Catheter: Decision to DC Catheter Urinary Catheter Date of Insertion: 12/09/24 Urinary Catheter Time of Insertion: 16:10 Date Urinary Catheter Removed: 12/10/24 Time Urinary Catheter Discontinued: 08:00 Discharge Data Studies Completed and Pending Completed Studies During Hospitalization Category Date Time Status US OB limited [id number] Stat Ultrasound 12/09/24 02:53 Completed Pending at discharge Category Date Time Status Complete Crossmatch Stat Lab 12/09/24 03:00 Results Fibrinogen Degradation Product Routine Lab 12/09/24 16:23 Received Frozen Plasma FZ <24 1st Cont Stat Lab 12/09/24 03:00 Results Leukocyte Reduced RBC Stat Lab 12/09/24 03:00 Results Platelets Leuko-Reduced Stat Lab 12/09/24 03:00 Results Type and Screen Stat Lab 12/09/24 03:00 Results Pathology: Surgical [PTH] Routine Pth 12/09/24 19:27 Received Radiology Impressions Obstetrics Ultrasound 12/09/24 02:53 IMPRESSION: 1. Intrauterine gestation as above. No cardiac activity identified. 2. Dr. Campos present during the exam. ADDENDUM: 12/09/24 0641 Addendum: AUA 27 weeks 1 day Estimated weight 886 g (1 lb 15 oz) Laboratory Results WBC 12.33 10^3/uL (3.29-11.43) H 12/11/24 04:53 Corrected WBC Cancelled 12/09/24 10:54 RBC 2.42 10^6/uL (3.85-5.65) L 12/11/24 04:53 Hgb 7.40 g/dL (11.27-16.99) L 12/11/24 04:53 Hct 21.7 % (36-47) L 12/11/24 04:53 MCV 89.7 fl (85-98) 12/11/24 04:53 MCH 30.6 pg (27-33) 12/11/24 04:53 MCHC 34.1 g/dL (30-55) 12/11/24 04:53 RDW 16.7 % (12.1-15.1) H 12/11/24 04:53 Plt Count 113 10^3/cmm (157-399) L 12/11/24 04:53 MPV 10.5 fL (7.4-10.4) H 12/11/24 04:53 Neut % (Auto) 51.6 % 12/11/24 04:53 Lymph % (Auto) 40.8 % 12/11/24 04:53 Rice % (Auto) 6.2 % 12/11/24 04:53 Eos % (Auto) 0.6 % 12/11/24 04:53 Baso % (Auto) 0.3 % 12/11/24 04:53 Neut # (Auto) 6.36 10^3/uL (1.8-7.7) 12/11/24 04:53 Lymph # (Auto) 5.0 10^3/uL (0.8-4.8) H 12/11/24 04:53 Rice # (Auto) 0.8 10^3/uL (0.2-0.9) 12/11/24 04:53 Eos # (Auto) 0.1 10^3/uL (0.0-0.8) 12/11/24 04:53 Baso # (Auto) 0.0 10^3/uL (0.0-0.1) 12/11/24 04:53 Nucleated RBC % (auto) 0 % 12/11/24 04:53 Nucleated RBCs # 0.0 /100WBC 12/11/24 04:53 PT 14.10 SECONDS (12.1-14.9) 12/09/24 16:20 INR 1.02 (0.8-1.2) 12/09/24 16:20 APTT 23.1 SECONDS (23.9-36.7) L 12/09/24 16:20 Fibrinogen 76 mg/dL (174-498) L 12/09/24 16:20 D-Dimer >= 20.00 ug/mLFEU (0-0.59) H 12/09/24 16:20 Sodium 131 mmol/L (136-145) L 12/09/24 16:20 Potassium 4.4 mmol/L (3.5-5.1) 12/09/24 16:20 Chloride 101 mmol/L (98-107) 12/09/24 16:20 Carbon Dioxide 20 mmol/L (22-29) L 12/09/24 16:20 Anion Gap 14.4 (5-19) 12/09/24 16:20 BUN 8 mg/dL (6-20) 12/09/24 16:20 Creatinine 0.4 mg/dL (0.5-0.9) L 12/09/24 16:20 GFR Calculation 187.4 mL/min (90-130) H 12/09/24 16:20 Glucose 97 mg/dL (65-115) 12/09/24 16:20 Calculated Osmolality 270 mOsm/kg (285-295) L 12/09/24 16:20 Uric Acid 3.0 mg/dL (2.4-5.7) 12/09/24 16:20 Calcium 8.3 mg/dL (8.5-10.5) L 12/09/24 16:20 Total Bilirubin 0.4 mg/dL (0.15-1.2) 12/09/24 16:20 AST 42 U/L (0-32) H 12/09/24 16:20 ALT 7 U/L (0-33) 12/09/24 16:20 Alkaline Phosphatase 247 U/L (35-105) H 12/09/24 16:20 Total Protein 5.3 g/dL (6.6-8.7) L 12/09/24 16:20 Albumin 2.9 g/dL (3.5-5.2) L 12/09/24 16:20 Globulin 2.4 g/dL (1.3-4.6) 12/09/24 16:20 Urine Color Yellow (Yellow) 12/09/24 16:40 Urine Appearance Clear (CLEAR) 12/09/24 16:40 Urine pH 6.0 (5-7) 12/09/24 16:40 Ur Specific [place] 1.018 (1.005-1.030) 12/09/24 16:40 Urine Protein Trace (Negative) A 12/09/24 16:40 Urine Glucose (UA) Negative (Normal) 12/09/24 16:40 Urine Ketones Negative (Negative) 12/09/24 16:40 Urine Blood 1+ (Negative) A 12/09/24 16:40 Urine Nitrate Negative (Negative) 12/09/24 16:40 Urine Bilirubin Negative (Negative) 12/09/24 16:40 Urine Urobilinogen 0.2 mg/dL (Negative) 12/09/24 16:40 Ur Leukocyte Esterase Negative (Negative) 12/09/24 16:40 Urine RBC 5-10 /hpf (0-2) H 12/09/24 16:40 Urine WBC 0-4 /hpf (0-5) H 12/09/24 16:40 Ur Squamous Epith Cells 5-10 /hpf (0-5) H 12/09/24 16:40 Amorphous Sediment Not Reportable 12/09/24 16:40 Urine Bacteria Trace /hpf (NONE) 12/09/24 16:40 U Random Total Protein 14 mg/dL 12/09/24 16:40 Urine Creatinine 70 mg/dL (28-217) 12/09/24 16:40 Protein/Creatinin Ratio 0.20 mg/mg CR 12/09/24 16:40 Blood Type A Negative 12/09/24 03:00 Rho(D) Type Rh negative 12/09/24 03:00 Antibody Screen Negative 12/09/24 03:00 Screen Negative (Negative) 12/09/24 19:31 Crossmatch See Detail 12/09/24 03:00 Vitals Last Vital Signs Temp 98.0 F 12/11/24 05:01 Pulse 99 12/11/24 05:01 Resp 16 12/11/24 05:01 BP 115/78 12/11/24 05:01 Pulse Ox 96 12/11/24 05:01 O2 Del Method Room Air 12/09/24 18:50 Results Labs OB ([facility]): Obstetrics US 12/09/24 Blood Type A Negative 12/09/24 Antibody Screen Negative 12/09/24 Hct 21.7 % (36-47) L 12/11/24 Hgb 7.40 g/dL (11.27-16.99) L 12/11/24 Rho(D) Type Rh negative 12/09/24 Plt Count 113 10^3/cmm (157-399) L 12/11/24 Uric Acid 3.0 mg/dL (2.4-5.7) 12/09/24 Discharge Plan Discharge Patient Disposition: Home Condition: Stable Prescriptions: New hydrocodone-acetaminophen 5-325 mg Tablet 1 tab PO Q6H PRN (Reason: Moderate To Severe Pain) Qty: 28 0RF ferrous sulfate 325 mg (65 mg iron) Tablet,Delayed Release (Dr/Ec) 325 mg PO DAILY Qty: 90 0RF ibuprofen 800 mg tablet 800 mg PO TID Qty: 45 0RF Continued sertraline [Zoloft] 100 mg tablet 100 mg PO DAILY Qty: 30 11RF Discharge Orders: Discharge Order (Routine); Ordered 12/11/24 Ordered By: Derrek Campos Referrals: Derrek Campos MD [Physician] - 12/13/24 7:45 am Discharge Diet: Usual diet Discharge Activity: Limit activity as instructed Patient Instructions: Depression (DC), Preeclampsia and Eclampsia After Delivery (GEN), Hemorrhage (DC), OB - Lyudmila, OB Discharge Report, OB Food/Drug Interaction Guide, OB Care at Home, Opioid Safety, Abnormal Bleeding Discharge Attestations [employer] Time Spent in Discharge Care*: less than 30 min Coding Level of Care Code Acute Code for Chg Fwd Diagnoses demise 26 weeks gestation of Z3A.26 Status post section Z98.891
[2024-12-11] MEDS: sertraline 100 mg Tablet PO (08:43)
[2024-12-11] MEDS: docusate sodium 100 mg Capsule PO (08:43)
[2024-12-11] MEDS: ferrous sulfate EC 325 mg Tablet PO (08:43)
[2024-12-11] MEDS: PRENATAL VIT NO.130/IRON/FOLIC 1 EACH TABLET PO (08:43)
[2024-12-11 11:46] VITALS: BP 113/59; PULSE 88
[2024-12-11 11:53] VITALS: TEMP 35.3; TEMP 36.2
[2024-12-11 11:55] VITALS: BP 113/59; PULSE 88; RESP 16; TEMP 36.4; O2SAT 98
[2024-12-13 08:05] LABS: Fibrinogen Degradation Product 20 mcg/mL (LESS THAN 5)
== END 2024-12-11 12:00 | disposition home or self-care (01) | DRG 786 ==
LOC: OPOB 04:40 → OBGYN 04:40
PROVIDERS: Admitting Provider Family Medicine; PCP Registered Nurse; Visit Provider Family Medicine
PROC: 10D00Z0 Extraction of Products of Conception, High, Open Approach (ICD-10-PCS; CPT 59514; principal; 2024-12-09 17:10)
DX: O36.4XX0 Maternal care for intrauterine death, not applicable or unspecified (principal); O45.92 Premature separation of placenta, unspecified, second trimester; O99.02 Anemia complicating childbirth; D64.9 Anemia, unspecified; Z3A.26 26 weeks gestation of pregnancy; Z37.1 Single stillbirth
CPT/HCPCS: 36415; 36430; 59409; 76815; 80053; 81001; 82570; 84156; 84550; 85025; 85027; 85362; 85378; 85384; 85460; 85610; 85730; 86850; 86900; 86920; 86927; 88305; 96372; 99211; J0330; J0690; J1100; J2250; J2405; J2590; J2704; J2765; J3010; J3490; J7030; J7121; P9016; P9017; P9035; P9040